=== PATIENT | female | born 1940 | race Caucasian/White ===

== ENCOUNTER 2019-09-25 13:30 | Outpatient (RCR) | payer MEDICARE, SELFPAY ==
--- NOTE | 2019-07-14 13:40 | OTOPEVAL ---
OCCUPATIONAL THERAPY INITIAL EVALUATION 07/14/2019 Thank you for referring this patient to [facility]. Lorena will benefit from skilled OT 2x/week for 4 weeks. Please review, sign, date and return this plan of care KENDALL. I agree with and certify that the following plan of care is medically necessary. Referring Physician Date Attending Provider: Adin Grimaldo MD *OT Outpatient Evaluation Start: 07/14/19 12:35 Freq: Status: Active Protocol: Document 07/14/19 12:35 SABRINA (Rec: 07/14/19 12:56 [email or web address] [email or web address]) Therapy Assessment Status Assessment Status Assessment Status Evaluation Outpatient Past Medical History Neurological History Hx Neurological Disorders No Significant History Cardiovascular History Hx Atrial Fibrillation Yes Hx Chest Pain Yes: occasionaly, happened a few months ago Hx Hypertension Yes Respiratory History Hx Sleep Apnea Yes: Did not qualify for a machine Gastrointestinal History Hx Other Gastrointestinal Disorders Yes: Constipation Genitourinary History Hx Urinary Tract Infection Yes Musculoskeletal History Hx Fibromyalgia Yes Hematological History Hx Hematological Disorders No Significant History Endocrine History Hx Other Endocrine Disorders Yes: X3 sinus surgerys HEENT History Hx Macular Degeneration Yes: Right eye Integumentary History Hx Eczema Yes Reproductive History Hx Reproductive Disorders No Significant History Psychosocial History Hx Anxiety Yes Hx Depression Yes Pain History History of Any Previous or Ongoing No Significant History Instance of Pain Anesthesia History Hx Anesthesia Reactions No Significant History Evaluation Information Problem Diagnosis (L) proximal humerus fracture Onset about a month ago Cause Fall Additional Evaluation Detail Patient sustained a fall and left comminuted proximal humerus fracture, which was treated non operatively. She has been wearing a sling at night for comfort. Prior Level of Function Activity Level (Last 3 Months) Hand Dominance Right Home Setting Home Type House,Single Level Living Situation With Relatives Comments Additional Prior Level of Function Lorena lives with her sister. Comments Prior to her fall and fracture she was independent with ADLs, cooking, cleaning, grocery
[2019-08-11 13:26] VITALS: BP_SYST 130
--- NOTE | 2019-08-11 15:03 | OTOPEVAL ---
OCCUPATIONAL THERAPY RE-EVALUATION REPORT 08/11/19 Thank you for referring this patient to [facility]. Due to transportation issues, Lorena needs to have 2 weeks off of therapy. She plans to continue her ROM HEP and follow up with MD next 08/21/19. Plan to see her 2x/week for 3 weeks after her MD appt. Please review, sign, date and return this re-evaluation KENDALL. I agree with and certify that the following plan of care is medically necessary. Referring Physician Date Admitting Provider: Attending Provider: Adin Grimaldo MD Referring Provider: *OT Outpatient Evaluation Start: 07/14/19 12:35 Freq: Status: Active Protocol: Document 08/11/19 13:26 SABRINA (Rec: 08/11/19 13:59 SABRINA [email or web address]) Evaluation Information Problem Diagnosis (L) proximal humerus fracture Cause Fall Additional Evaluation Detail Lorena has been participating in outpatient OT x4 weeks for left shoulder AROM and PROM. She has been performing dowel exercises, pulleys, and scapular ROM exercises to facilitate optimal functional use of the LUE for ADLs. Subjective Information Lorena reports improved Query Text:As Reported By Patient/ independence and less pain Family with ADLs. She notes that getting dressed and doing a sponge bath has gotten easier. Pain Assessment Timing of Pain Assessment Timing of Pain Assessment Re-assessment Pain Scale Pain Scale Used Numeric (1 - 10) Self Report Pain Assessment Left Shoulder(s) Reported Pain Level 3 Pain Description Aching,Dull Current Pain Intensity 3 Lowest Pain Intensity 3 Greatest Pain Intensity 5 Pain Aggravating Factors Exercise/Activity Pain Relief Interventions Used By Heat,Inactivity/Rest Patient Pain Score Pain Score 3: Self Report Additional Pain Score Comments Pain reduced from 8/10 with ROM HEP to 4/10. Upper Extremity Range of Motion Scapular/ Shoulder Range of Motion Left Shoulder Flexion - Active 100 Shoulder Flexion - Passive 140 Shoulder Extension - Active 55 Shoulder Abduction - Active 90 Shoulder Abduction - Passive 130 Shoulder Medial Rotation - Active IR of BUEs is symmetrical. Query Text:Reach Behind the Back Shoulder Lateral Rotation - Active ER of BUEs is symmetrical Query Text:Reach Behind the Head Scapular/Shoulder Range of Motion (L) shoulder AROM improved Comments from: 75* flexion
--- NOTE | 2019-08-26 07:37 | PCOTNOTE ---
Due to COVID-19, Lorena's follow up appt with Dr. Grimaldo was cancelled. Called his office today to ask about progressing Lorena's exercises to strengthening. Spoke with Ashlyn at his office. She states that she talked with Dr. Grimaldo and Lorena is able to begin strengthening as tolerated.
[2019-09-11 13:34] VITALS: BP_SYST 130
--- NOTE | 2019-09-11 14:31 | OTOPEVAL ---
OCCUPATIONAL THERAPY RE-EVALUATION REPORT 09/11/2019 Lorena is making progress with ROM and functional strength. She will benefit from continue skilled OT 2x/week for 4 weeks. Thank you for referring Lorena Gurrola to [facility]. Please review, sign, date and return this plan of care [facility]. I agree with and certify that the following plan of care is medically necessary. Referring Physician Date Admitting Provider: Attending Provider: Adin Grimaldo MD Referring Provider: *OT Outpatient Evaluation Evaluation Information Problem Diagnosis (L) proximal humerus fracture Cause Fall Additional Evaluation Detail Lorena has been participating in outpatient OT x8 weeks for left shoulder AROM/PROM and some gentle strengthening. Subjective Information Lorena she has difficulty Query Text:As Reported By Patient/ getting into a comfortable Family position when going to sleep at night. When asked about functional improvements she states Hard to say, I don't do much. Pain Assessment Timing of Pain Assessment Timing of Pain Assessment Re-assessment Pain Scale Pain Scale Used Numeric (1 - 10) Self Report Pain Assessment Left Shoulder(s) Reported Pain Level 2 Pain Description Aching,Soreness Lowest Pain Intensity 1 Greatest Pain Intensity 5 Pain Score Pain Score 2: Self Report Upper Extremity Range of Motion Scapular/ Shoulder Range of Motion Left Shoulder Flexion - Active 115 Shoulder Extension - Active 70 Shoulder Abduction - Active 105 Shoulder Abduction - Passive 130 Shoulder Medial Rotation - Active (L) hand reaches 4 inches Query Text:Reach Behind the Back lower than the (R) hand when reaching up the back. Shoulder Lateral Rotation - Active (L) hand reaches 1 inch less Query Text:Reach Behind the Head than the (R) hand when reaching behind the head. Scapular/Shoulder Range of Motion (L) shoulder AROM improved Comments from, measured on 08/11/19: 100* flexion 55* extension 90* abduction PROM of flexion and abduction remained at 140* and 130* respectively. Elbow/Forearm Range of Motion Left Reason Not Measured WNL/Left Wrist Range of Motion Left Reason Not Measured WNL/Left Finger Range of Motion Left Reason Not Measured WNL/Left Thumb Range of Motion Left Reason Not Measured WNL/Left
--- NOTE | 2019-09-29 08:48 | PCOTNOTE ---
Patient called & cancelled scheduled appointment this date. Unknown reason.
--- NOTE | 2019-10-06 08:54 | PCOTNOTE ---
Addendum entered by Pete Katz, KATELYN/Sandra, CHT 10/06/19 08:54: Last 's 10/02/19, not 10/09/19 Original Note: Patient cancelled last 's (10/09/19) and today's appt due to leg pain.
--- NOTE | 2019-10-09 16:09 | PCOTNOTE ---
This treatment is being continued on visit number [id number]. Please see documentation on both accounts to view progress. Completed interventions, outcomes, and problems have been marked as Inactive to facilitate the copying of the Care plan routine for recurring accounts.
== END 2019-10-08 14:51 | disposition home or self-care (01) ==
LOC: ANHOT 13:30
PROVIDERS: PCP Family Medicine; Visit Provider Orthopaedic Surgery
DX: S42.302D Unspecified fracture of shaft of humerus, left arm, subsequent encounter for fracture with routine healing (principal); I48.0 Paroxysmal atrial fibrillation
CPT/HCPCS: 97014; 97110; 97140; 97165; 97530; G0283

== ENCOUNTER 2019-11-17 13:30 | Outpatient (RCR) | payer MEDICARE, SELFPAY ==
[2019-10-08 14:52] VITALS: BP_SYST 130
--- NOTE | 2019-10-09 16:10 | PCOTNOTE ---
The treatment documented on this account is a continuation of the treatment documented on visit number [id number]. Please see documentation on both accounts to view progress. The Plan of Care has been transitioned and updated within the new V#. I have addressed and agree with the discipline specific Problems, Interventions, and Goals for the current certification period. Completed interventions, outcomes, and problems have been marked as Inactive to facilitate the copying of the Care plan routine for recurring accounts.
--- NOTE | 2019-10-15 07:45 | PCOTNOTE ---
Patient called and cancelled Sunday's appointment this week (10/13/19) due to still having trouble getting around after falling and hurting her ankle. She also expresses concern about making it to Sunday's appointment (10/17/19), which is her re-evaluation. She has not been seen for 3 weeks (since 09/25/19). When talking to her Sunday, I recommended that she make a follow up appointment with Dr. Grimaldo.
[2019-10-17 14:41] VITALS: BP_SYST 140
--- NOTE | 2019-10-17 15:44 | OTOPEVAL ---
OCCUPATIONAL THERAPY RE-EVALUATION AND PROGRESS REPORT 10/17/2019 Lorena has missed 3 weeks of therapy due to an ankle injury and progress this assessment period is minimal. She also reports difficulty understanding and completing her home exercise program, thus continued skilled therapy is recommended for hands on instruction and progression. Plan to see patient 2x/week for 4 additional weeks. Thank you for referring Lorena Gurrola to [facility]. Please review, sign, date and return this plan of care KENDALL. I agree with and certify that the following plan of care is medically necessary. Referring Physician Date Referring Provider: Adin Grimaldo MD *OT Outpatient Re-Evaluation Evaluation Information Problem Diagnosis (L) proximal humerus fracture Cause Fall Additional Evaluation Detail Lorena has not been seen in therapy since 09/25/19 due to falling and injuring her ankle. She was only seen 4 times since her last re-evaluation on 09/11/19 and then had a 3 week gap of no therapy. Due to nature of her shoulder fracture and patient's level of difficulty understanding her exercises, the progress has been slow and guarded. Subjective Information Lorena reports feeling like her Query Text:As Reported By Patient/ shoulder hasn't made any Family progress. She states she does her exercises everyday. Pain Assessment Timing of Pain Assessment Timing of Pain Assessment Re-assessment Pain Scale Pain Scale Used Numeric (1 - 10) Self Report Pain Assessment Left Shoulder(s) Reported Pain Level 2 Pain Description Aching,Dull Lowest Pain Intensity 1 Greatest Pain Intensity 5 Pain Aggravating Factors ADL's,Exercise/Activity Pain Score Pain Score 2: Self Report Upper Extremity Range of Motion Scapular/ Shoulder Range of Motion Left Shoulder Flexion - Active 120 Shoulder Flexion - Passive 140 Shoulder Extension - Active 70 Shoulder Abduction - Active 110 Shoulder Abduction - Passive 140 Shoulder Medial Rotation - Active ER of the (L) shoulder is 1 cm Query Text:Reach Behind the Back less than the (R) shoulder. This improved from 4 inch difference. Shoulder Lateral Rotation - Active IR is symmetrical to the RUE. Query Text:Reach Behind the Head This improved from 1 inch difference. Scapular/Shoulder Range of Motion ROM measurements from 09/11/19: Comments -flexion 115*
[2019-11-17 13:39] VITALS: BP_SYST 115
--- NOTE | 2019-11-17 14:18 | OTOPEVAL ---
OCCUPATIONAL THERAPY DISCHARGE NOTE 11/17/2019 Thank you for referring Lorena Gurrola to [facility]. Patient has reached a plateau with ROM. She is currently independent with ROM and strengthening HEP. D/C skilled OT at this time. Please review, sign, date and return this D/C Note KENDALL. I agree with and certify that the following plan of care is medically necessary. Referring Physician Date Referring Provider: Adin Grimaldo MD *OT Outpatient Re-Evaluation & D/C Evaluation Information Problem Diagnosis (L) proximal humerus fracture Onset May 2019 Cause Fall Subjective Information Lorena reports improved Query Text:As Reported By Patient/ functional use of the LUE to Family take the trash out, doing the dishes, cooking, and washing her hair. She reports not being able to sleep on the left side and lift heavy with the left arm. Pain Assessment Timing of Pain Assessment Timing of Pain Assessment Re-assessment Pain Scale Pain Scale Used Numeric (1 - 10) Self Report Pain Assessment Left Shoulder(s) Reported Pain Level 2 Pain Description Aching,Dull Lowest Pain Intensity 2 Greatest Pain Intensity 5 Pain Aggravating Factors Exercise/Activity Pain Score Pain Score 2: Self Report Upper Extremity Range of Motion Scapular/ Shoulder Range of Motion Left Shoulder Flexion - Active 120 Shoulder Flexion - Passive 140 Shoulder Extension - Active 70 Shoulder Abduction - Active 110 Shoulder Abduction - Passive 115 Shoulder Medial Rotation - Active ER of the (L) shoulder is Query Text:Reach Behind the Back symmetrical to the (R) shoulder when patient reaches her hands up her back. Shoulder Lateral Rotation - Active IR is symmetrical to the RUE Query Text:Reach Behind the Head when patient reaches her hands behind her head and neck. Scapular/Shoulder Range of Motion ROM measurements from 10/17/19: Comments -flexion 120* -extension 70* -abduction 110* No changes in AROM since last reassessment. Patient appears to be reaching a plateau with functional AROM. She is currently independent with all ROM and strengthening exercises. Upper Extremity Muscle Strength Testing Scapular/Shoulder Left Shoulder Flexion Strength 4 Good Shoulder Extension Strength
== END 2019-11-18 10:22 | disposition home or self-care (01) ==
LOC: ANHOT 13:30
PROVIDERS: PCP Family Medicine; Visit Provider Orthopaedic Surgery
DX: S42.302D Unspecified fracture of shaft of humerus, left arm, subsequent encounter for fracture with routine healing (principal); I48.0 Paroxysmal atrial fibrillation
CPT/HCPCS: 97110; 97140

== ENCOUNTER 2020-06-20 14:34 | Emergency (ER) | payer MEDICARE, SELFPAY ==
--- NOTE | ~2020-06-20 | XR_ITS ---
EXAMINATION: XR ribs RT 2V EXAM DATE: 06/20/2020 15:20 INDICATION: Fall, pain under right breast. TECHNIQUE: Frontal projection of the upper right ribs, frontal projection of the lower right ribs, ob lique projection of the right ribs, without chest x-ray(s) for interpretation. There is no prior saturnino dy for comparison. FINDINGS: Bones are osteopenic. Please note that osteopenia limits sensitivity for detecting fractur es by radiographs. There are coarse alterations of right 8th-10th ribs anterolaterally without discr ete fracture line identified. There is no soft tissue abnormality seen. No right-sided pneumothora x. IMPRESSION: Several right lower rib course alterations anterolaterally, could be chronic given no dis crete fracture line identified but can't exclude acute rib fracture. Reviewed, dictated and finalized at location A. RNAL SPECIALIST IMPRESSION: Several right lower rib course alterations anterolaterally, could b e chronic given no discrete fracture line identified but can't exclude acute ri b fracture.
--- NOTE | ~2020-06-20 | XR_ITS ---
EXAMINATION: XR sacrum coccyx min 2V EXAM DATE: 06/20/2020 15:20 INDICATION: Fall, tailbone pain. Initial encounter. TECHNIQUE: Frontal projection, inlet projection, lateral projection sacrum and coccyx. There is no prior study for comparison. FINDINGS: Evaluation limited from bowel gas and osteopenia. Sacrum, sacroiliac joints, sacral arcuate lines are intact, no definite acute fracture. Lower lumbar spondylosis. IMPRESSION: Limited exam without acute fracture line identified. Reviewed, dictated and finalized at location A. P CARE WORKER
--- NOTE | 2020-06-20 14:50 | ED.FALL ---
HPI - Fall General Chief Complaint: Back Pain/Injury Stated Complaint: Back Pain Time Seen by Provider: 06/20/20 15:21 Source: patient and RN notes reviewed Mode of arrival: ambulatory Limitations: no limitations History of Present Illness HPI Narrative: 79-year-old female presents concern for right rib pain, tailbone pain after falling in the bathroom on . She denies any head injury, loss of consciousness, weakness in any extremity, headache. Reports right rib pain with certain movements and deep breathing. Denies any bruising, open skin, abrasions, lacerations. Reports she has been taking Tylenol for pain. MD complaint: fall Related Data Home Medications Medication Instructions Recorded Confirmed rivaroxaban 20 mg tablet 20 mg PO DAILY 04/02/19 06/20/20 thyroid (pork) [[facility] Thyroid] 30 mg PO DAILY 06/20/20 06/20/20 Allergies Allergy/AdvReac Type Severity Reaction Status Date / Time No Known Allergies Allergy Verified 05/26/20 13:41 Review of Systems Review of Systems: Narrative: CONSTITUTIONAL: Denies malaise, chills, sweats, or fever. CARDIOVASCULAR: Denies chest pain, palpitations, or edema. RESPIRATORY: Denies cough or dyspnea. GASTROINTESTINAL: Denies abdominal pain, nausea, vomiting, diarrhea SKIN: Denies open skin MUSCULOSKELETAL: Reports right rib pain, right tailbone pain NEUROLOGIC: Denies numbness, weakness, or headache. All systems reviewed & are unremarkable except as noted in HPI and below PMFSH Past Medical History Medical History (Updated 06/20/20 @ 15:46 by Natalia Marcelino NP) A-fib Anxiety Chronic constipation Depression History of hepatitis C Hypothyroid Peripheral neuropathy Surgical History Surgical History Surgical history unknown Family History Family History Father Family history of cardiovascular disease Mother Cerebrovascular accident Social History Social History Smoking status: Never smoker Second hand tobacco smoke exposure: No Alcohol intake: current Drinks per week: 2 Substance use: never Substance use type: does not use Gender identity (if verbalized by the patient): Female Spiritual care concerns: Yes Agree to blood products: Yes Comments At time of signature, agree with nursing past medical, surgical, social and family history. There is no relevant family history pertinent to the presenting complaint Exam Narrative: Exam Narrative: GENERAL: Well-appearing, well-nourished, and in no acute distress. HEAD: Normocephalic, atraumatic. EYES: PERRLA, conjunctivae clear, and EOMI. ENT: Nares clear. Mucous membranes moist. NECK: Supple. CHEST: No respiratory distress. Clear to auscultation. No bony deformities, no asymmetry. Speaks in full sentences. No bruising, erythema, open skin noted to chest wall HEART: Regular rate and rhythm. No murmur heard. Normal peripheral pulses. ABDOMEN: Soft, nontender, nondistended, normal active bowel sounds, no palpable masses. EXTREMITIES: Grossly normal range of motion, grossly normal strength and sensation. SKIN: Warm, dry, no rash. NEURO: Alert and oriented x3. No focal deficits. Cranial nerves II through XII grossly intact PSYCH: Normal mood and affect Course Course Emergency Course: Extensive discussion with patient regarding patient's concerns of living alone, taking care of her older sister, concerns about pain control. Patient instructed to call her primary care doctor tomorrow for resources regarding possible help at home, help with groceries. Patient given reasons to go the emergency room. Patient is aware of diagnosis, understands and agrees to treatment plan. Anticipatory guidance given. Patient agrees to follow-up as directed and is aware of reasons to seek care at the emergency department. Portions of this record may have been
[2020-06-20 14:57] VITALS: BP 150/94; PULSE 110; RESP 20; TEMP 36.9; O2SAT 98
== END 2020-06-20 16:09 | disposition home or self-care (01) ==
PROVIDERS: Emergency Provider Nurse Practitioner; PCP Family Medicine
DX: S29.9XXA Unspecified injury of thorax, initial encounter (principal); W19.XXXA Unspecified fall, initial encounter; M53.3 Sacrococcygeal disorders, not elsewhere classified; I48.91 Unspecified atrial fibrillation; Z86.19 Personal history of other infectious and parasitic diseases; E03.9 Hypothyroidism, unspecified; G62.9 Polyneuropathy, unspecified
CPT/HCPCS: 71100; 72220; 99214; G0463

== ENCOUNTER 2020-06-30 09:31 | Outpatient (CLI) | payer MEDICARE, SELFPAY ==
--- NOTE | ~2020-06-30 | XR_ITS ---
EXAMINATION: XR hip RT min 2V DATE: 06/30/2020 10:32 INDICATION: Right hip pain. TECHNIQUE: 2 views of right hip were obtained. COMPARISON: None. FINDINGS: Bone alignment is normal. No fracture. There is mild right hip osteoarthritis. IMPRESSION: 1. Mild right hip osteoarthritis. Reviewed, dictated and finalized at location A. ESS WORKER
== END 2020-06-30 09:32 | disposition home or self-care (01) ==
LOC: ANHIMG 09:36
PROVIDERS: PCP Family Medicine; Visit Provider Family Medicine
DX: M16.11 Unilateral primary osteoarthritis, right hip (principal)
CPT/HCPCS: 73502

== ENCOUNTER 2020-10-01 13:00 | Emergency (ER) | payer MEDICARE, SELFPAY ==
--- NOTE | ~2020-10-01 | XR_ITS ---
EXAMINATION: [id number] INDICATION: Left-sided chest pain TECHNIQUE: A frontal view of the chest and 3 views of the left ribs were obtained. COMPARISON: None. FINDINGS: The lungs are hyperinflated but free of acute opacities. There is no pleural effusion or pn eumothorax. The cardiomediastinal silhouette is normal. There are nondisplaced fractures of the left fourth and seventh ribs. IMPRESSION: 1. Nondisplaced left fourth and seventh rib fractures. 2. Hyperinflation without acute cardiopulmonary abnormality. Reviewed, dictated and finalized at location A.
[2020-10-01 13:10] VITALS: BP 124/88; PULSE 90; RESP 18; TEMP 37.2; O2SAT 97
--- NOTE | 2020-10-01 13:21 | ED.BACK ---
HPI - Back Pain/Injury General Chief Complaint: Unspecified Stated Complaint: Left side Pain Time Seen by Provider: 10/01/20 13:21 Source: patient Mode of arrival: ambulatory Limitations: no limitations History of Present Illness HPI Narrative: Lorena Gurrola is an 80 yo female with a PMH of afib, macular degeneration, hypothyroid, neuropathy, who comes to express care for assessment of L sided chest/ flank pain after bending to side and back while in a chair over a week ago. States pain has not improved, hard to get up from bed, is reproducible chest wall pain. States pain is been unresponsive to tramadol Related Data Home Medications Medication Instructions Recorded Confirmed rivaroxaban 20 mg tablet 20 mg PO DAILY 04/02/19 06/30/20 Injection For Mac. Degeneration 10/01/20 Allergies Allergy/AdvReac Type Severity Reaction Status Date / Time No Known Allergies Allergy Verified 06/30/20 08:48 Review of Systems Review of Systems: Narrative: CONSTITUTIONAL: Denies fever, chills, sweats. EYES: Denies visual changes, redness, discharge. ENT: Denies rhinorrhea, congestion, sore throat, otalgia. CARDIOVASCULAR: Denies chest pain, palpitations, edema. Left sided chest wall pain RESPIRATORY: Denies dyspnea, wheezing, cough GASTROINTESTINAL: Denies abdominal pain, nausea, vomiting, diarrhea. GENITOURINARY: Denies dysuria, hematuria, abnormal discharge SKIN: Denies rash or itching. NEUROLOGIC: Denies numbness, or focal weakness. PSYCHIATRIC: Denies anxiety or depression. PMFSH Past Medical History Medical History A-fib Anxiety Chronic constipation Depression History of hepatitis C Hypothyroid Peripheral neuropathy Surgical History Surgical History Surgical history unknown Family History Family History Father Family history of cardiovascular disease Mother Cerebrovascular accident Social History Social History Smoking status: Never smoker Second hand tobacco smoke exposure: No Alcohol intake: current Drinks per week: 2 Substance use: never Substance use type: does not use Gender identity (if verbalized by the patient): Female Spiritual care concerns: Yes Agree to blood products: Yes Comments At time of signature, I agree with nursing past medical, surgical, social and family history. There is no relevant family history pertinent to the presenting complaint. Exam Narrative: Exam Narrative: GENERAL: This is a well-nourished, well-developed patient, in mild distress. HEAD: normocephalic, atraumatic. EYES: Sclera clear/white. Vision is grossly intact. EARS: External ears normal, unenthusiastic at the CSF about this earlier. Hearing grossly intact. NOSE: External nose normal without nasal discharge, nares without redness, no rhinorrhea. THROAT: Mucous membranes moist, NECK: Neck supple, non-tender CARDIOVASCULAR: Regular rate and rhythm without murmurs, gallops, or rubs. RESPIRATORY: Clear to auscultation. Breath sounds equal bilaterally. No wheezes, rales, or rhonchi. Reproducible pain between ribs 4-5 on the left flank side, pain with stretching in same area GASTROINTESTINAL: Abdomen soft, non-tender, SKIN: warm, intact with no suspicious lesions or rash, good texture and turgor. NEURO: awake, alert, and oriented to person, place and time. There were no obvious focal neurologic abnormalities. Steady gait EXTREMITIES: Normal range of motion. BACK: Nontender without deformity Course Course Emergency Course: 80-year-old woman comes to [facility] for evaluation of left-sided rib pain that started by stretching over a week ago Chest x-ray done with rib view-nondisplaced left fourth and seventh rib fractures with hyperinflation without acute cardio or pulmonary abnor
--- NOTE | 2020-10-01 14:40 | PC.NURSE ---
was discharged after incentive spirometer teaching at 1420, requested to stay in room to call pharmacy before leaving, 1438 still in room and requested to speak with provider.
== END 2020-10-01 14:20 | disposition home or self-care (01) ==
PROVIDERS: Emergency Provider Nurse Practitioner; PCP Family Medicine
DX: S22.42XA Multiple fractures of ribs, left side, initial encounter for closed fracture (principal); X50.9XXA Other and unspecified overexertion or strenuous movements or postures, initial encounter; I48.91 Unspecified atrial fibrillation; E03.9 Hypothyroidism, unspecified; Z86.19 Personal history of other infectious and parasitic diseases; G62.9 Polyneuropathy, unspecified; H35.30 Unspecified macular degeneration
CPT/HCPCS: 71101; 99213; G0463

== ENCOUNTER → 2021-01-06 12:35 | Outpatient (CLI) | payer MEDICARE, SELFPAY ==
--- NOTE | ~2021-01-06 | MR_ITS ---
EXAMINATION: MR cervical spine wo con DATE: 01/06/2021 13:25 INDICATION: Disease of spinal cord, unspecified. Neck pain. TECHNIQUE: Magnetic resonance imaging (MRI) of the cervical spine was performed without intravenous c ontrast. Sequences included sagittal T2-weighted FSE, sagittal STIR FSE, sagittal T1-weighted FSE, ax ial MERGE, and axial T2-weighted FSE. COMPARISON: None FINDINGS: Bone alignment is normal. There is mild chronic anterior wedging of T1 and T3 vertebral bod ies. There is severely decreased disc height from C3-C4 through C6-C7 with endplate remodeling. The s fabi cord signal intensity is normal. The following disc levels are specifically discussed: C2-C3: There is a central protrusion. There is no uncovertebral joint osteoarthritis. There is severe bilateral facet joint osteoarthritis. There is no neural foraminal stenosis. There is no central can al stenosis. C3-C4: The disc does not extend beyond the endplate margin. There is ankylosis of the uncovertebral j oints without hypertrophy. There is ankylosis of the facet joints with mild right and severe left hyp ertrophy. There is mild right and moderate left neural foraminal stenosis. There is no central canal stenosis. C4-C5: The disc is bulging. There is severe bilateral uncovertebral joint osteoarthritis. There is se devang bilateral facet joint osteoarthritis. There is moderate bilateral neural foraminal stenosis. The re is mild central canal stenosis with ventral indentation of the spinal cord. C5-C6: The disc is bulging. There is severe bilateral uncovertebral joint osteoarthritis. There is se devang bilateral facet joint osteoarthritis. There is moderate bilateral neural foraminal stenosis. The re is mild central canal stenosis. C6-C7: The disc is bulging. There is severe bilateral uncovertebral joint osteoarthritis. There is se devang bilateral facet joint osteoarthritis. There is mild bilateral neural foraminal stenosis. There i s mild central canal stenosis. C7-T1: The disc does not extend beyond the endplate margin. There is no uncovertebral joint osteoarth ritis. There is ankylosis of the facet joints with mild hypertrophy. There is mild left neural forami nal stenosis. There is no central canal stenosis. IMPRESSION: 1. Severe cervical spondylosis. Reviewed, dictated and finalized at location A.
== END ==
PROVIDERS: PCP Family Medicine; Visit Provider Psychiatry & Neurology Neurology
DX: G95.9 Disease of spinal cord, unspecified (principal); M47.892 Other spondylosis, cervical region
CPT/HCPCS: 72141

== ENCOUNTER 2021-02-06 10:15 | Observation (INO) | payer MEDICARE, SELFPAY ==
--- NOTE | ~2021-02-06 | XR_ITS ---
EXAMINATION: XR ankle RT min 3V EXAM DATE: 02/06/2021 11:54 INDICATION: Initial encounter following injury, with pain of the right ankle. TECHNIQUE: Right ankle frontal, lateral and oblique projections obtained and reviewed. There is no p rior study for comparison. FINDINGS: Mid aspect of the right fibula has somewhat unusual appearance to the cortex, could be proj ectional but can't exclude mid fibular fracture; recommend right tibia/fibula exam. The right ankle m ortise appears intact. There is no subcutaneous gas. The soft tissue is unremarkable. There are n o radiopaque foreign bodies. IMPRESSION: Recommend tibia/fibula x-ray . No ankle fracture. Reviewed, dictated and finalized at location A.
--- NOTE | ~2021-02-06 | CT_ITS ---
EXAMINATION: CT lumbar spine wo [facility] EXAM DATE: 02/06/2021 12:54 INDICATION: Back pain. Compression fractures. TECHNIQUE: Spiral CT lumbar spine was performed without contrast. Axial, coronal and sagittal images of the lumbar spine were reviewed. The dose-length product (DLP) for this examination was 815.82 mGy- cm. The exposure was tailored according to patient size (auto mA exposure control), and iterative re construction (ASIR) was used as additional dose reduction technique. Correlation is made to lumbar x- ray same date. FINDINGS: There are mild compression fractures at the superior endplates of L1 and L3, mild to moderate diffuse loss of the L4 vertebral body height, technically a burst fracture. The L1 compression fracture appe ars acute or at least has an acute component, with mild fat stranding surrounding this vertebral body . The others appear chronic. There is 6 mm anterolisthesis L4 on L5 without spondylolysis. Moderate t o severe L3-4 disc disease, mild to moderate at L2-3. Mild lumbar levoscoliosis. Sacroiliac joints ar e intact. Some advanced lower lumbar facet arthropathy. The right L3-4 neural foramina has moderate t o severe stenosis, the most narrowed level. Large fluid density lesion in the liver incompletely imaged, imaged portion consistent with cyst. The re is low density left adrenal gland nodule measuring 2.2 cm consistent with adenoma. IMPRESSION: 1. L1 mild compression fracture, acute or with acute component/refracture. 2. Chronic L3 compression and L4 burst fractures. 3. Left adrenal adenoma. Reviewed, dictated and finalized at location A.
--- NOTE | ~2021-02-06 | XR_ITS ---
EXAMINATION: XR lumbar spine min 4V EXAM DATE: 02/06/2021 11:54 INDICATION: Fall. Back pain. Spinal stenosis. TECHNIQUE: Lumber spine frontal, lateral, bilateral oblique projections. Coned down frontal and lat eral L5-S1 lumbar projections for interpretation. There is no prior study for comparison. FINDINGS: Bones are osteopenic. There is mild compression fracture superior endplate of L1 and superi or endplate of L3, mild to moderate diffuse compression fracture of L4. These appear chronic but can' t exclude acute component. There is moderate mid and lower lumbar facet arthropathy. There is grade 1 anterolisthesis L4 on L5 without spondylolysis suspected. There is moderate to severe loss of the di sc height at L3-4, mild to moderate at L2-3. Sacrum, sacroiliac joints, sacral arcuate lines are inta ct. IMPRESSION: 1. L1, L3 and L4 compression fractures appear chronic but can't exclude acute component. 2. Lumbar spondylosis. Reviewed, dictated and finalized at location A.
--- NOTE | ~2021-02-06 | XR_ITS ---
EXAMINATION: XR tibia fibula RT 2V EXAM DATE: 02/06/2021 12:47 INDICATION: Abnormal ankle x-ray. TECHNIQUE: Right tibia/fibula frontal and lateral projections obtained and reviewed. Correlation is m alexander to right ankle exam same date. FINDINGS: Right tibial and fibular shafts unremarkable, ankle finding is normal contour to the fibul a. There are no acute fractures or dislocations identified. There is no subcutaneous gas. The soft tissue is unremarkable. There are no radiopaque foreign bodies. IMPRESSION: 1. Right tib-fib exam without acute osseous findings. Reviewed, dictated and finalized at location A.
[2021-02-06 10:15] VITALS: BP 112/77; PULSE 90; RESP 16; TEMP 36.3; O2SAT 96
[2021-02-06] MEDS: HYDROcodone/acetaminophen (*CRX) 5-325 MG TABLET 1 TAB PO ×3 (11:40→16:34)
--- NOTE | 2021-02-06 12:05 | ED.GENADULT ---
HPI - General Adult General Chief complaint: Back Pain/Injury Stated complaint: FALL/ LOW BACK PAIN Time Seen by Provider: 02/06/21 10:37 Source: patient and family Mode of arrival: EMS Limitations: no limitations History of Present Illness HPI narrative: Patient with history of spinal stenosis presents with chief complaint of increased low back pain and pain to her right ankle that began 2 days ago after a fall. Patient states she also attempted to help her sister up and that also triggered her back pain. Patient has not been able to ambulate around her home due to her discomfort. Patient was prescribed hydrocodone 10 mg but states that she took the tablets and feels very dizzy and unable to ambulate so she has not taking any more medication. Patient states that her baclofen was also increased from 5 to 10 mg. Patient states that she has taken baclofen for many years. Patient's family states that the patient needs to be admitted because she cannot take care of herself at home and the family cannot watch her. Patient denies. Injury, syncope, chest pain, shortness of breath, loss of bowel or bladder function or saddle paresthesias. Patient does not have any neurologic deficits. Patient states she was able to get up within a few minutes after her fall. Related Data Home Medications Medication Instructions Recorded Confirmed baclofen 20 mg PO DAILY 02/06/21 02/06/21 diltiazem HCl [DILT-XR] 180 mg PO DAILY 02/06/21 02/06/21 hydrocodone-acetaminophen 1 tablet PO Q8H PRN 02/06/21 02/06/21 mirtazapine 15 mg PO HS 02/06/21 02/06/21 rivaroxaban [Xarelto] 20 mg PO DAILY 02/06/21 02/06/21 thyroid (pork) [[place] Thyroid] 30 mg PO DAILY 02/06/21 02/06/21 Allergies Allergy/AdvReac Type Severity Reaction Status Date / Time No Known Allergies Allergy Verified 02/06/21 16:27 Review of Systems Review of Systems: CONSTITUTIONAL: Denies fever, chills, or sweats. EYES: Denies visual changes, redness, or discharge. ENT: Denies rhinorrhea, congestion, sore throat, or otalgia. CARDIOVASCULAR: Denies chest pain, palpitations, or edema. RESPIRATORY: Denies cough or dyspnea. GASTROINTESTINAL: Denies abdominal pain, nausea, vomiting, or diarrhea. GENITOURINARY: Denies dysuria or hematuria. SKIN: Denies rash or itching. MUSCULOSKELETAL: Reports back pain and ankle denies joint pain or myalgia. NEUROLOGIC: Denies headache, numbness, dizziness, or weakness. PSYCHIATRIC: Denies anxiety or depression. [facility] Past Medical History Medical History (Updated 02/06/21 @ 19:19 by Laney Edmonds NP) A-fib Anxiety Chronic constipation Depression History of hepatitis C Treated Hypothyroid Peripheral neuropathy Surgical History Surgical History (Updated 02/06/21 @ 19:21 by Laney Edmonds NP) H/O sinus surgery X3 History of tonsillectomy and adenoidectomy Family History Family History Father Family history of cardiovascular disease Mother Cerebrovascular accident Social History Social History (Updated 02/06/21 @ 19:23 by Laney Edmonds NP) Social History: The patient has never been or had any children. She lives with her 88-year-old sister. 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 The patient desires to be a full code and her friend Nicky is a durable power commonwealth attorney for healthcare. The patient is a lifelong nonsmoker. She does not use alcohol marijuana or illicit drugs. Smoking status: Never smoker Second hand tobacco smoke exposure: No Alcohol intake: former Drinks per week: 2 Substance use: never Substance use type: does not use Gender identity (if verbalized by the patient): Female Sexual Orientation (if Verbalized by the Patient): Straight or Heterosexual Spiritual care concerns: Yes Agree to blood products: Yes Exam Narrative: GENERAL: Well-appearing, well-nourished, and in no acute distress. HEAD: Normocephalic, atraumati
[2021-02-06] MEDS: diazePAM (*CRX) 5 MG TABLET 2.5 MG PO (12:34)
[2021-02-06 15:55] VITALS: BP 117/86; PULSE 76; RESP 16; O2SAT 96
--- NOTE | 2021-02-06 16:26 | ADMGEN ---
This patient, Lorena Gurrola, was admitted to 3 [facility] Surg Room 332-01. Patient/family oriented to hospital policies and general routines including ID bracelet, bed and alarms, visiting hours, pain management, procedures, bathroom and other care routines, personal items, smoking policy, room service/diet, and visiting hours. Information on how to activate the Rapid Response Team has been discussed. Patient/Family are encouraged to report perceived risks to care and to ask questions if they do not understand what they are told or what they should do.
[2021-02-06 16:54] VITALS: BMI 26.4
--- NOTE | 2021-02-06 19:15 | PM.IMHP ---
H&P: HPI History of Present Illness Date/Time: 02/06/21 19:15 this is a 80-year-old female patient who lives with her older sister that she takes care of who is 88 years old. The patient states that she does have some chronic back pain but recently she help to get her sister up and hurt her back. The patient has a history of spinal stenosis and came to the emergency room today with increased lower back pain and also right ankle pain. She said that she fell 2 days ago as well. The patient stated that she is having difficulty ambulating due to the pain. She states that she can move everything and she is difficult for her to walk due to the pain. She typically walks with a walker. The patient states that her baclofen was increased to 5-10 mg. She has been taking some Vicodin that she was prescribed but is making her feel dizzy. The patient stated that she cannot take care of herself and that the family cannot take it for either. The patient is not incontinent of bowel or bladder. Lumbar spine CT was read as L1 mild compression fracture, acute or with acute component/re fracture. Chronic L3 compression at L4 burst fractures. Left adrenal adenoma. Tibia-fibula x-ray was read as right tib-fib exam without acute osseous findings. The patient was given Vicodin and Valium. The patient stated that her pain is still be on a 10. The patient is being admitted to observation status on the date of service of 02/06/2021. Chief Complaint: Back pain Review of Systems Review of Systems: All systems reviewed & are unremarkable except as noted in HPI and below Constitutional: Constitutional: Reports as per HPI and Reports no additional constitutional complaints Eyes: Eyes: Reports as per HPI and Reports no additional eye complaints ENT: Reports system reviewed and no additional complaints, except as documented and Reports Normal hearing present Cardiovascular: Cardiovascular: Reports no additional cardiovascular complaints Respiratory: Respiratory: Reports no additional respiratory complaints and Reports no additional respiratory complaints Gastrointestinal: Gastrointestinal: Reports as per HPI and Reports no additional gastrointestinal complaints Musculoskeletal: Musculoskeletal: Reports no additional musculoskeletal complaints Integumentary/Breasts: Skin/Breast: Reports system reviewed and no additional complaints, except as docu and Reports as per HPI Neurologic: Reports system reviewed and no additional complaints, except as documented, Reports as per HPI and Reports Normal hearing present Psychiatric: Psychiatric: Reports no additional psychiatric complaints and Reports as per HPI Endocrine: Endocrine: Reports no additional endocrine complaints Hematologic/Lymphatic: Hematologic/Lymphatic: Reports no additional hematologic/lymphatic complaints Allergic/Immunologic: Allergic/Immunologic: Reports no additional allergic/immunologic complaints [facility] Past Medical History Medical History (Updated 02/06/21 @ 19:19 by Laney Edmonds NP) A-fib Anxiety Chronic constipation Depression History of hepatitis C Treated Hypothyroid Peripheral neuropathy Surgical History Surgical History (Updated 02/06/21 @ 19:21 by Laney dEmonds NP) H/O sinus surgery X3 History of tonsillectomy and adenoidectomy Family History Family History Father Family history of cardiovascular disease Mother Cerebrovascular accident Social History Social History (Updated 02/06/21 @ 19:23 by Laney Edmonds NP) Social History: The patient has never been or had any children. She lives with her 88-year-old sister. 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 The patient desires to be a full code and her friend Nicky is a durable power trust and estates attorney for healthcare. The patient is a lifelong nonsmoker. She does not use alcohol marijuana or illicit drugs. Smoking status: Never smoker Deny
[2021-02-06] MEDS: MIRTAZAPINE 15 MG TABLET PO (21:19)
[2021-02-06] MEDS: METHYLNALTREXONE 12 MG/0.6 ML VIAL SUB-Q (21:19)
[2021-02-06] MEDS: KETOROLAC 15 MG/ML VIAL (*BKC) IV PUSH (21:19)
[2021-02-06 22:00] VITALS: BP 93/52; PULSE 68; RESP 18; TEMP 36.7; O2SAT 95
[2021-02-07] MEDS: HYDROcodone/acetaminophen (*CRX) 5-325 MG TABLET 1 TAB PO ×3 (03:09→23:59)
[2021-02-07] MEDS: THYROID 30 MG TABLET PO (05:51)
[2021-02-07 06:00] VITALS: BP 105/67; PULSE 74; RESP 18; TEMP 36.2; O2SAT 96
[2021-02-07 06:53] LABS: Lactic Acid Reflex 0.8 mmol/L (0.7-2.1)
[2021-02-07 06:56] LABS: Alanine Aminotransferase 14 U/L (4-35); Albumin Level 3.8 g/dL (3.5-5.1); Alkaline Phosphatase 92 U/L (38-126); Anion Gap 9 mmol/L (8-16); Aspartate Amino Transferase 23 U/L (14-36); Bilirubin,Total 0.6 mg/dL (0.2-1.3); Blood Urea Nitrogen 25 mg/dL (7-17); Carbon Dioxide 26 mmol/L (22-30); Chloride 105 mmol/L (98-107); Estimated CRCL calculation 38 ml/min; Estimated Glomerular Filt Rate 60; Glucose 101 mg/dL (65-110); Magnesium 2.5 mg/dL (1.6-2.3); Potassium 3.3 mmol/L (3.4-5.0); Sodium 140 mmol/L (137-145)
[2021-02-07 06:58] LABS: Basophils Absolute Auto 0.1 K/mm3 (0.0-0.1); Basophils Percent Auto 0.9 % (0.2-1.2); Eosinophils Absolute Auto 0.2 K/mm3 (0-0.3); Eosinophils Percent Auto 3.6 % (0-4.4); Hematocrit 44.3 % (37.0-47.0); Hemoglobin 14.7 g/dL (12.0-15.0); Immature Granulocyte Absolute 0.03 K/mm3 (0.00-0.031); Immature Granulocyte Percent A 0.5 % (0-0.5); Lymphocytes Absolute Auto 2.23 K/mm3 (0.9-3.2); Lymphocytes Percent Auto 40.3 % (18.3-44.2); Mean Corpuscular HGB Conc 33.2 g/dl (32-36); Mean Corpuscular Hemoglobin 30.9 pg (26-34); Mean Corpuscular Volume 93.1 fl (80-100); Mean Platelet Volume 10.5 fl (7.4-10.4); Monocytes Absolute Auto 0.6 K/mm3 (0.1-0.6); Monocytes Percent Auto 10.3 % (2.6-8.5); Neutrophils Absolute Auto 2.5 K/mm3 (1.3-6.7); Neutrophils Percent Auto 44.4 % (45.5-73.1); Platelet Count Result 195 k/mm3 (150-375); Red Blood Count 4.76 M/mm3 (4.2-5.4); Red Cell Distribution Width 13.4 % (11.5-14.5); White Blood Count 5.5 K/mm3 (4.5-10.0)
[2021-02-07] MEDS: dilTIAZem HCL CD 180 MG CAP.ER.24H PO (08:42)
[2021-02-07] MEDS: BACLOFEN 10 MG TABLET 20 MG PO (08:42)
[2021-02-07 09:38] LABS: Free T4 Free Thyroxine Reflex 1.34 ng/dL (0.78-2.19)
[2021-02-07] MEDS: POTASSIUM CHLORIDE 20 MEQ TABLET PO (11:05)
[2021-02-07 14:00] VITALS: BP 122/78; PULSE 78; RESP 18; TEMP 36.6; O2SAT 95
--- NOTE | 2021-02-07 15:15 | PM.IMPN ---
Progress Note: A&P Assessment and Plan (1) Compression fracture of L1 lumbar vertebra: Qualifiers: Encounter type: initial encounter Qualified Code(s): S32.010A - Wedge compression fracture of first lumbar vertebra, initial encounter for closed fracture Code(s): S32.010A - Wedge compression fracture of first lumbar vertebra, initial encounter for closed fracture Status: Acute Assessment and Plan: Secondary to fall. Lumbar spine CT showed L1 mild compression fracture acute or with acute component as well as chronic L3 compression fracture. Supportive care. Ice and heat p.r.n. Appreciate PT/OT eval Continue with baclofen and analgesics as needed for pain SNF placement being arranged. Appreciate care coordination consultation (2) Intractable back pain: Code(s): M54.9 - Dorsalgia, unspecified Status: Acute Assessment and Plan: Improving. Plan as above. (3) Neuropathy: Code(s): G62.9 - Polyneuropathy, unspecified Status: Acute Assessment and Plan: Chronic. Related to spinal stenosis. She has been followed by Dr. Crawford for this. (4) Chronic constipation: Code(s): K59.09 - Other constipation Status: Acute Assessment and Plan: Likely related to opioid use. Last bowel movement 3 days ago. Received 1 dose of Relistor on admission MiraLax and Colace daily Dulcolax suppository prn Limit narcotics and encourage ambulation (5) Chronic atrial fibrillation: Code(s): I48.20 - Chronic atrial fibrillation, unspecified Status: Acute Assessment and Plan: Rate is controlled and she is asymptomatic Continue home Cardizem and Xarelto (6) Acquired hypothyroidism: Code(s): E03.9 - Hypothyroidism, unspecified Status: Acute Assessment and Plan: TSH is slightly elevated with normal T4 and T3 Continue [place] Thyroid 30 mg daily She will benefit from repeat TSH with reflex in 4-6 weeks as an outpatient Subjective Date/time seen: 02/07/21 15:15 Interval history: Date of service: 02/07/2021 Lorena Gurrola is an 80-year-old female with a history atrial fibrillation on chronic anticoagulation, anxiety, hypothyroidism, peripheral neuropathy who is seen in follow-up for low back pain due to compression fracture. She is feeling better today and her pain has improved. She currently rates her pain as 4/10. She reports the pain starts in the upper back and travels down to the sacral region. No lateral radiation towards the hips. No groin pain, no saddle anesthesia, no numbness or tingling of lower extremities. No loss of bowel control. Last bowel movement was approximately 3 days ago. She is incontinent of urine at baseline. She has been able to ambulate with assistance without an increase in her pain. She denies abdominal pain, nausea, vomiting, fever, chills, shortness breath, cough, chest pain, dizziness, lightheadedness. She is feeling a bit anxious today. Her appetite has been good. She has no additional concerns. Review of Systems Review of Systems: All systems reviewed & are unremarkable except as noted in HPI and below Exam Narrative: Ms. Gurrola is a well-nourished, well-appearing 80-year-old female who is lying supine in bed. She appears comfortable and is in NARD. Neuro: awake, alert and oriented x4, speech clear, no focal neuro deficits noted HEENMT: normocephalic, atraumatic, EOMI, sclerae anicteric, moist oral mucosa, tongue midline, nares patent Neck/back: Neck supple without lymphadenopathy, no point tenderness on back, no paraspinal muscle numbness Respiratory: clear to auscultation bilaterally, nonlabored breathing Cardio: regular rate, regular rhythm Abdomen: nondistended, normoactive bowel sounds, soft, nontender to palpation : Wearing depends Extremities: no edema, erythema, or tenderness to palpation, DP pulses 2+ bilaterally. Bilateral LE strength
[2021-02-07] MEDS: RIVAROXABAN 20 MG TABLET PO (16:31)
[2021-02-07] MEDS: polyethylene glycoL 3350 17 GM POWD.PACK PO (16:35)
[2021-02-07 22:00] VITALS: BP 114/81; PULSE 74; RESP 18; TEMP 36.2; O2SAT 94
[2021-02-07] MEDS: MIRTAZAPINE 15 MG TABLET PO (22:12)
[2021-02-07] MEDS: DOCUSATE SODIUM 100 MG CAPSULE PO (22:12)
[2021-02-08 06:00] VITALS: BP 126/86; PULSE 86; RESP 18; TEMP 35.9; O2SAT 95
[2021-02-08] MEDS: THYROID 30 MG TABLET PO (06:05)
[2021-02-08 06:51] LABS: Anion Gap 8 mmol/L (8-16); Blood Urea Nitrogen 23 mg/dL (7-17); Calcium 9.9 mg/dL (8.4-10.2); Carbon Dioxide 25 mmol/L (22-30); Chloride 107 mmol/L (98-107); Estimated CRCL calculation 48 ml/min; Estimated Glomerular Filt Rate > 60; Glucose 96 mg/dL (65-110); Magnesium 2.3 mg/dL (1.6-2.3); Potassium 3.5 mmol/L (3.4-5.0); Sodium 140 mmol/L (137-145)
[2021-02-08] MEDS: HYDROcodone/acetaminophen (*CRX) 5-325 MG TABLET 1 TAB PO ×2 (08:07→14:11)
[2021-02-08] MEDS: DOCUSATE SODIUM 100 MG CAPSULE PO (08:08)
[2021-02-08] MEDS: polyethylene glycoL 3350 17 GM POWD.PACK PO (08:08)
[2021-02-08] MEDS: BACLOFEN 10 MG TABLET 20 MG PO (08:08)
[2021-02-08] MEDS: dilTIAZem HCL CD 180 MG CAP.ER.24H PO (08:08)
[2021-02-08 11:35] VITALS: BP 102/64
[2021-02-08 12:19] VITALS: BP 110/68; BP 119/74
--- NOTE | 2021-02-08 13:07 | PM.DS ---
DS: Admitting Diagnosis Discharge Date 02/08/2021 Admitting Diagnosis Compression fracture of L1 vertebrae DS: Discharge Diagnosis Discharge Diagnosis (1) Compression fracture of L1 lumbar vertebra: Qualifiers: Encounter type: initial encounter Qualified Code(s): S32.010A - Wedge compression fracture of first lumbar vertebra, initial encounter for closed fracture Code(s): S32.010A - Wedge compression fracture of first lumbar vertebra, initial encounter for closed fracture Status: Acute Assessment and Plan: Secondary to fall. Lumbar spine CT showed L1 mild compression fracture acute or with acute component as well as chronic L3 compression fracture. Supportive care provided including analgesics, ice, heat p.r.n. Evaluated by PT/OT. Will continue therapy at SNF. Continue with baclofen She had significant symptomatic improvement. (2) Intractable back pain: Code(s): M54.9 - Dorsalgia, unspecified Status: Acute Assessment and Plan: Improved significantly. No worrisome signs or symptoms including saddle anesthesia, loss of bowel or bladder control, numbness, or tingling. Plan as above. (3) Neuropathy: Code(s): G62.9 - Polyneuropathy, unspecified Status: Acute Assessment and Plan: Chronic. She has been followed by Dr. Crawford for this. (4) Chronic constipation: Code(s): K59.09 - Other constipation Status: Acute Assessment and Plan: Likely related to opioid use. Last bowel movement 3 days prior to presentation Received 1 dose of Relistor on admission MiraLax and Colace daily Dulcolax suppository prn Limit narcotics and encourage mobility (5) Chronic atrial fibrillation: Code(s): I48.20 - Chronic atrial fibrillation, unspecified Status: Acute Assessment and Plan: Rate is controlled and she remained asymptomatic Continue home Cardizem and Xarelto (6) Acquired hypothyroidism: Code(s): E03.9 - Hypothyroidism, unspecified Status: Acute Assessment and Plan: TSH is slightly elevated with normal T4 and T3 Continue [place] Thyroid 30 mg daily She will benefit from repeat TSH with reflex in 4-6 weeks as an outpatient DS: Summary Hospital Course Hospital Course: Date of admission: 02/06/2021 Date of discharge: 02/08/2021 Lorena Gurrola is an 80-year-old female with a history atrial fibrillation on chronic anticoagulation, anxiety, hypothyroidism, peripheral neuropathy who presented to the emergency department on 02/06/2021 with worsened low back pain ongoing for 2 days after a fall, as well as right ankle pain. On presentation to the emergency department, her vital signs were stable, she was afebrile, ankle x-ray negative for fracture, tibia/fibula x-ray without acute osseous findings, lumbar spine x-ray with L1, L3, and L4 compression fractures as well as lumbar spondylosis, and lumbar CT showed L1 mild compression fracture that appears acute as well as chronic L3 compression an L4 burst fracture. She was admitted to the hospitalist service for further evaluation and management of low back pain. Supportive care provided. She had significant symptomatic improvement. She was evaluated by PT/OT and will continue therapy at SNF. She was feeling much better and felt comfortable with plans to discharge to SNF. Given her overall improvement, she was determined to no longer require inpatient care and was felt to be stable for discharge. We discussed worrisome signs and symptoms for which to return and she was educated on her medications. She was discharged in hemodynamically stable condition on 02/08/2021. Status at Discharge Functional status at discharge: uses cane/walker Overall status at discharge: patient is progressing back to baseline Time Spent with Patient Time attestation: Total time spent providing and/or coordinating discharge services: 45 minutes Time spent: Nehemias
[2021-02-08] MEDS: BISACODYL 5 MG TABLET EC PO (13:14)
--- NOTE | 2021-02-08 13:33 | PC.NURSE ---
On 02/08/21, the student, [Ashlyn Arriaza ], provided care and completed [facility] documentation on this patient. I have reviewed the student's documentation and agree with the findings.
== END 2021-02-08 14:35 | disposition home or self-care (01) ==
LOC: ANHED 14:57 → ANH3MEDSUR 16:12
PROVIDERS: Physician Assistant; Admitting Provider Internal Medicine Nephrology; Emergency Provider Emergency Medicine; PCP Family Medicine; Visit Provider Nurse Practitioner
DX: S32.010A Wedge compression fracture of first lumbar vertebra, initial encounter for closed fracture (principal); I48.20 Chronic atrial fibrillation, unspecified; M54.9 Dorsalgia, unspecified; E03.9 Hypothyroidism, unspecified; G62.9 Polyneuropathy, unspecified; K59.09 Other constipation; F41.8 Other specified anxiety disorders; Z79.01 Long term (current) use of anticoagulants; Z86.19 Personal history of other infectious and parasitic diseases; W19.XXXA Unspecified fall, initial encounter; M47.816 Spondylosis without myelopathy or radiculopathy, lumbar region; Z79.891 Long term (current) use of opiate analgesic
CPT/HCPCS: 36415; 72110; 72131; 73590; 73610; 80048; 80053; 83605; 83735; 84439; 84443; 84480; 85025; 96372; 96374; 97116; 97161; 97165; 97530; 99285; A9270; G0378; J1885; J2212

== ENCOUNTER 2021-07-01 07:28 | Outpatient (RCR) | payer MEDICARE, SELFPAY ==
[2021-06-16 12:59] VITALS: BMI 27.5
== END 2021-08-19 12:26 | disposition home or self-care (01) ==
LOC: ANHWOC 07:28
PROVIDERS: PCP Family Medicine; Visit Provider Specialist
DX: R60.0 Localized edema (principal)
CPT/HCPCS: 29581; 99211; 99213; G0463

== ENCOUNTER 2021-07-29 06:33 | Outpatient (CLI) | payer MEDICARE, SELFPAY ==
--- NOTE | ~2021-07-29 | MR_ITS ---
EXAMINATION: MR lumbar spine wo [facility] EXAM DATE: 07/29/2021 08:10 INDICATION: Back pain, bilateral leg weakness. TECHNIQUE: Multi-sequential, multiplanar MR images of the lumbar spine were obtained without contrast . Sagittal T1, T2, T2 fat saturation images. Axial T2 weighted images. Correlation is made to [facility] 02/06/2021. FINDINGS: There is chronic, treated L1 burst fracture with mild to moderate loss of this vertebral bautista dy height posteriorly and moderate loss centrally and anteriorly. Only about 2 mm retropulsion. Mild to moderate chronic L3 compression and L4 burst fractures without retropulsion. There is acute or sub acute mild compression of L5 at the superior endplate. No spondylolysis. There is 5 millimeters anter olisthesis L4 on L5. Without spondylolysis. Scattered vertebral body hemangiomas. There is moderate d isc disease at L3-4. The conus medullaris terminates at the T12-L1 level and has normal signal intens ity and morphology. Largest liver cyst. Paraspinal soft tissue is unremarkable. Level by level evaluation: T12-L1: There is a mild diffuse disc bulge. Facet arthropathy: Mild. Neural foraminal stenosis: No stenosis. Central canal stenosis: No stenosis. L1-L2: There is a mild to moderate diffuse disc bulge. Facet arthropathy: Mild bilateral. Neural foraminal stenosis: Mild right. Central canal stenosis: Mild. L2-L3: There is a moderate diffuse disc bulge. Facet arthropathy: Moderate. Neural foraminal stenosis: Mild to moderate bilateral. Central canal stenosis: Mild. L3-L4: There is a moderate diffuse disc bulge. Facet arthropathy: Moderate, partially fused. Neural foraminal stenosis: Mild to moderate right, mild left. Central canal stenosis: Mild. L4-L5: There is a moderate diffuse disc bulge. Facet arthropathy: Moderate to severe. Neural foraminal stenosis: Mild to moderate bilateral. Central canal stenosis: Mild. L5-S1: There is a mild diffuse disc bulge. Facet arthropathy: Moderate. Neural foraminal stenosis: Minimal bilateral. Central canal stenosis: No stenosis. IMPRESSION: 1. Mild acute or subacute L5 compression. 2. Chronic T12, L1, L3 and L4 fractures. 3. L4-5 grade 1 anterolisthesis. Reviewed, dictated and finalized at location B. [employer]
--- NOTE | ~2021-07-29 | MR_ITS ---
EXAMINATION: MR thoracic spine wo con EXAM DATE: 07/29/2021 08:10 INDICATION: Low back pain, bilateral leg weakness. TECHNIQUE: Multi-sequential, multiplanar MR images of the thoracic spine were obtained without contra st. Sagittal T1, T2, T2 fat saturation, axial T2 weighted images reviewed. No prior study for compar eron. Correlation is made to CT lumbar spine 02/06/2021. FINDINGS: Interval development of T12 burst fracture with mild loss of this vertebral body height posteriorly, 4 mm superior endplate retropulsion, moderate loss of vertebral body height centrally. Mild central c anal stenosis at this level. This is probably subacute given appearance, amount of edema. The vertebr al body and disc heights are otherwise well maintained. The other thoracic vertebral body heights a re maintained. There is moderate mid thoracic disc disease. Mild diffuse thoracic disc disease. There is mild left neural foraminal stenosis at T11-T12, otherwise thoracic neural foramen widely patent. Several thoracic hemangiomas. The spinal cord signal intensity and intrinsic morphology is normal. P araspinal soft tissue is unremarkable. L1 treated burst fracture, correlate with lumbar spine report same date. IMPRESSION: 1. Interval development of subacute appearing T12 burst fracture. 2. Chronic appearing treated L1 burst fracture. 3. Moderate thoracic disc disease. No significant stenosis. Reviewed, dictated and finalized at location B. CEMAN
== END 2021-07-29 06:34 | disposition home or self-care (01) ==
PROVIDERS: PCP Family Medicine; Visit Provider Nurse Practitioner Acute Care
DX: M54.50 Low back pain, unspecified (principal); R29.898 Other symptoms and signs involving the musculoskeletal system
CPT/HCPCS: 72146; 72148

== ENCOUNTER 2021-08-03 09:30 | Outpatient (RCR) | payer MEDICARE, SELFPAY ==
--- NOTE | 2021-07-08 15:15 | PTOPEVAL ---
PHYSICAL THERAPY EVALUATION AND PLAN OF CARE 07-08-21 Thank you for referring Nafisa Gurrola to [facility] for the diagnosis of B LE lymphedema. She is scheduled to be seen for therapy? 3x/week for 4 weeks. Please review, sign, date and return this plan of care KENDALL. I agree with and certify that the following plan of care is medically necessary. Referring Physician Date Attending Provider: Janice Larios NP *PT Outpatient Evaluation Past Medical History Neurological History Hx Neurological Disorders No Significant History Cardiovascular History Hx Atrial Fibrillation Yes Hx Chest Pain Yes: occasional-- Hx Hypertension Yes: med control Respiratory History Hx Sleep Apnea Yes Hx Other Respiratory Disorders Yes: sinus surgeries Gastrointestinal History Hx Other Gastrointestinal Disorders Yes: Constipation- manage with stool softener med Genitourinary History Hx Urinary Tract Infection Yes Musculoskeletal History Hx Back Pain Yes: SPINAL STENOSIS; L 1 compression fracture Hx Fibromyalgia Yes Hx Other Musculoskeletal Disorders Yes: under care of pain management--to have MRI/ injections? Hematological History Hx Hematological Disorders No Significant History Endocrine History Hx Hypothyroidism Yes HEENT History Hx Macular Degeneration Yes: Right eye Integumentary History Hx Eczema Yes Reproductive History Hx Reproductive Disorders No Significant History Psychosocial History Hx Anxiety Yes Hx Depression Yes Pain History History of Any Previous or Ongoing No Significant History Instance of Pain Anesthesia History Hx Anesthesia Reactions No Significant History Evaluation Information Problem Diagnosis B LE lymphedema Onset December 2020 Prior Level of Function Home Setting Home Type Assisted Living Facility Living Situation Alone Mobility Assistive Devices (Used Last 3 Walker, Rollator Months) Comments Additional Prior Level of Function have helper 2x/wk for safety Comments with showering; indep with dressing and showering; meals, housekeeping and laundry provided at assisted living center; Pain Assessment Timing of Pain Assessment Timing of Pain Assessment Assessment Self Report Self Report Pain Level 0 Pain Score Pain Score 0: Self Report Additional Pain Score Comments no pain in legs, chronic pain
--- NOTE | 2021-07-20 13:52 | PCPTNOTE ---
pt is scheduled to have an MRI Sat, I called radiology and talked with Deyanira. She discussed pt with the MRI team , called me back and stated pt could not have the MRI if there is any moisture on her leg or lotion; there is a risk that her skin could be burned. Discussed with them rescheduling her MRI to be earlier in the day of her PT appt or the day before her appt, and pt could remove her wraps for the MRI. They are going to call pt and reschedule her MRI.
--- NOTE | 2021-08-03 11:59 | PTOPEVAL ---
PHYSICAL THERAPY DISCHARGE 08-03-21 Refer to the clinical summary below for her status today, compared to the initial evaluation. Discharge PT services; the goals were partially achieved. Thank you for referring Nafisa Gurrola to [facility].? Please review, sign, date and return this Discharge report KENDALL. I agree with and certify that the following plan of care is medically necessary. Referring Physician Date Attending Provider: Janice Larios NP Document 08/03/21 09:30 SAUL (Rec: 08/03/21 10:37 SAUL [id number]) Subjective Information Nafisa reports: frustrated Query Text:As Reported By Patient/ have to do this stuff the rest Family of her life; Pain Assessment Timing of Pain Assessment Timing of Pain Assessment Assessment Self Report Self Report Pain Level 0 Pain Score Pain Score 0: Self Report Lymphedema Evaluation Skin Inspection Location Left Lower Extremity,Right Lower Extremity Lymphedema Stage I Skin Inspection Comment R and L lower leg with slight redness over ~ 1/3 of lower leg; no edema over ankles- visible malleoli or dorsum of feet; no redness over toes; R medial- distal thigh with minimal fibrosis of tissue education/review: monitor thighs and feet for swelling- if they increase, will need to obtain johann, which she has info for; discussed and demo [employer] foot pieces-- measured for small long size and issued info for her; skin precautions, lotion, garment care and replacement, continue self MLD; to continue to walk as tolerated and do leg exercises. pt had a few questions, answered and clarified for her LE Circumferential Measurement Left LE Lymphedema Side Left Metatarsal Heads (cm) 19.8 Figure 8 of Ankle (cm) 47 8 cm From Bottom of Foot (cm) 21.4 12 cm From Bottom of Foot (cm) 21.5 16 cm From Bottom of Foot (cm) 23.8 20 cm From Bottom of Foot (cm) 26.8 24 cm From Bottom of Foot (cm) 30 28 cm From Bottom of Foot (cm) 32.8 32 cm From Bottom of Foot (cm) 33.6 36 cm From Bottom of Foot (cm) 35.5
== END 2021-08-03 13:56 | disposition home or self-care (01) ==
LOC: ANHPT 09:30
PROVIDERS: PCP Family Medicine; Visit Provider Nurse Practitioner Adult Health
DX: I89.0 Lymphedema, not elsewhere classified (principal)
CPT/HCPCS: 29581; 97140; 97162

== ENCOUNTER 2021-08-28 12:05 | Inpatient (IN) | payer MEDICARE, SELFPAY ==
[2021-08-28] VITALS (8 sets, daily range): BP systolic 99–118; BP diastolic 61–82; PULSE 98–121; RESP 16–24; TEMP 36.3–37.6; O2SAT 92–96; BMI 25.2
--- NOTE | ~2021-08-28 | XR_ITS ---
EXAMINATION: XR chest 1V portable DATE: 08/31/2021 09:37 INDICATION: Pneumonia. TECHNIQUE: A single frontal view of the chest was obtained. COMPARISON: CT abdomen and pelvis 08/28/2021 FINDINGS: There are airspace opacities at the lung bases, left worse than right. There is a diffuse i nterstitial pattern in the lungs, consistent with mild pulmonary edema. There is a small right pleura l effusion. No pneumothorax. Cardiomegaly is noted. There are changes of vertebroplasty in L1. There is an old healed fracture of proximal left humerus. IMPRESSION: 1. Mild pulmonary edema. 2. Airspace opacities at the lung bases, left worse than right, consistent with atelectasis versus pn eumonia. 3. Small right pleural effusion. 4. Cardiomegaly. Reviewed, dictated and finalized at location A. IMPRESSION: 1. Mild pulmonary edema. 2. Airspace opacities at the lung bases, left worse than right, consistent with atelectasis versus pneumonia. 3. Small right pleural effusion. 4. Cardiomegaly.
--- NOTE | ~2021-08-28 | CT_ITS ---
EXAMINATION: CT abdomen pelvis w con INDICATION: Generalized abdominal pain TECHNIQUE: Computed tomographic images of the abdomen and pelvis were obtained after the administrati on of 100 cc of Omnipaque 350 intravenous contrast. The dose-length product (DLP) was 437.70 mGy-cm. Automated exposure control and iterative reconstruction technique were employed. COMPARISON: MRI, 422 FINDINGS: Dependent airspace opacities are present in the lung bases. Cardiomegaly is noted. There is an age-indeterminate sternal fracture with step-off and nonunion. The caudal portion of the sternum is anteriorly displaced and slightly overriding. Cysts of the liver measure up to 8.2 cm in the right hepatic lobe. The spleen, pancreas, and adrenal glands are normal. The gallbladder is distended. The re is wall thickening of the gallbladder. A small amount of pericholecystic fluid is identified. Ther e is also a small volume of pelvic ascites. No pathologically enlarged abdominal or pelvic lymph node s are identified. There is no free intraperitoneal gas or evidence of bowel obstruction. The kidneys are unremarkable. There is a moderate volume of colonic stool. Lumbar and lower thoracic compression and burst fractures are unchanged since the recent MRI. IMPRESSION: 1. CT findings consistent with acute cholecystitis. Small volume of pelvic ascites is likely inflamma tory. 2. Airspace opacities of the lung bases, consistent with atelectasis and pneumonia. 3. 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 Reviewed, dictated and finalized at location A. IMPRESSION: 1. CT findings consistent with acute cholecystitis. Small volume of pelvic asci clinton is likely inflammatory. 2. Airspace opacities of the lung bases, consistent with atelectasis and pneumo noe. 3. 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
--- NOTE | ~2021-08-28 | US_ITS ---
EXAMINATION: US abdomen limited DATE: 08/29/2021 09:08 INDICATION: Cholecystitis. TECHNIQUE: Multiple grayscale and Doppler ultrasound images of the abdomen were obtained. COMPARISON: CT abdomen and pelvis 08/28/2021 FINDINGS: The visualized portions of the head and body of the pancreas are normal. There are cysts in the liver measuring up to 7.2 cm. No liver surface nodularity. The gallbladder is distended. Gallbla dder wall thickening is noted. There was a positive sonographic Tejeda sign. No visible gallstones. T he common duct is normal and measures 5 mm. There is normal flow in main portal vein. IMPRESSION: 1. Acute cholecystitis. Reviewed, dictated and finalized at location A. IMPRESSION: 1. Acute cholecystitis.
[2021-08-28 12:26] LABS: Basophils Percent Auto 0.3 % (0.2-1.2); Hematocrit 47.5 % (37.0-47.0); Immature Granulocyte Absolute 0.03 K/mm3 (0.00-0.031); Immature Granulocyte Percent A 0.3 % (0-0.5); Lymphocytes Absolute Auto 0.97 K/mm3 (0.9-3.2); Mean Corpuscular HGB Conc 33.7 g/dl (32-36); Mean Corpuscular Hemoglobin 30.4 pg (26-34); Mean Corpuscular Volume 90.1 fl (80-100); Monocytes Absolute Auto 0.7 K/mm3 (0.1-0.6); Monocytes Percent Auto 6.3 % (2.6-8.5); Neutrophils Absolute Auto 9.1 K/mm3 (1.3-6.7); Neutrophils Percent Auto 84.1 % (45.5-73.1); Platelet Count Result 238 k/mm3 (150-375); Red Blood Count 5.27 M/mm3 (4.2-5.4); Red Cell Distribution Width 16.3 % (11.5-14.5); White Blood Count 10.8 K/mm3 (4.5-10.0)
--- NOTE | 2021-08-28 12:35 | PC.NURSE ---
Dr. Mcgovern at bedside to assess pt.
[2021-08-28 12:37] LABS: Alanine Aminotransferase 103 U/L (4-35); Albumin Level 4.1 g/dL (3.5-5.1); Alkaline Phosphatase 193 U/L (38-126); Anion Gap 8 mmol/L (8-16); Aspartate Amino Transferase 81 U/L (14-36); Bilirubin,Total 1.1 mg/dL (0.2-1.3); Blood Urea Nitrogen 18 mg/dL (7-17); Calcium 9.3 mg/dL (8.4-10.2); Carbon Dioxide 26 mmol/L (22-30); Chloride 104 mmol/L (98-107); Estimated CRCL calculation 34 ml/min; Estimated Glomerular Filt Rate 53; Glucose 139 mg/dL (65-110); Lipase 207 U/L (23-300); Potassium 3.6 mmol/L (3.4-5.0); Sodium 138 mmol/L (137-145)
[2021-08-28] MEDS: SODIUM CHLORIDE 0.9% IV 1,000 ML 999 ML IV CONT (12:47)
[2021-08-28] MEDS: MORPHINE SULFATE (*CRX) 4 MG/ML INJ IV PUSH ×2 (12:51→20:21)
[2021-08-28] MEDS: ONDANSETRON INJ 4 MG/2 ML VIAL IV PUSH (12:52)
--- NOTE | 2021-08-28 12:55 | ED.ABDPAIN ---
HPI - Abdominal Pain General Chief Complaint: Abdominal Pain Stated Complaint: abd pain Time Seen by Provider: 08/28/21 12:21 Source: patient Mode of arrival: ambulatory Limitations: no limitations History of Present Illness HPI narrative: Patient is 80 years old white female presented to the ED with diffuse abdominal pain started 2 weeks ago. Patient denies any fever, chills, nausea, vomiting, diarrhea, constipation, urinary symptoms. Patient reports pain increases with movement, slightly better at rest, pain is all over, sharp pain. Patient denies any history of abdominal surgery Related Data Home Medications Medication Instructions Recorded Confirmed diltiazem HCl [DILT-XR] 180 mg PO DAILY 02/06/21 08/09/21 thyroid (pork) [[place] Thyroid] 30 mg PO DAILY 02/06/21 08/09/21 baclofen 10 mg PO TID 06/16/21 08/09/21 furosemide 40 mg PO DAILY 06/16/21 08/09/21 gabapentin 300 mg PO TID 06/16/21 08/09/21 ibuprofen 200 mg PO BID PRN 06/16/21 08/09/21 potassium chloride 20 meq PO DAILY 06/16/21 08/09/21 Allergies Allergy/AdvReac Type Severity Reaction Status Date / Time No Known Allergies Allergy Verified 08/28/21 12:23 Review of Systems Review of Systems: CONSTITUTIONAL: Denies fever, chills, or sweats. EYES: Denies visual changes, redness, or discharge. ENT: Denies rhinorrhea, congestion, sore throat, or otalgia. CARDIOVASCULAR: Denies chest pain, palpitations, or edema. RESPIRATORY: Denies cough or dyspnea. GASTROINTESTINAL: Denies abdominal pain, nausea, vomiting, or diarrhea. GENITOURINARY: Denies dysuria or hematuria. SKIN: Denies rash or itching. MUSCULOSKELETAL: Denies back pain, joint pain, or myalgia. NEUROLOGIC: Denies headache, numbness, or weakness. PSYCHIATRIC: Denies anxiety or depression. COUNT INCLUDES THE [facility] Past Medical History Medical History A-fib Anxiety Chronic constipation Depression History of hepatitis C Treated Hypothyroid Peripheral neuropathy Surgical History Surgical History H/O sinus surgery X3 History of tonsillectomy and adenoidectomy Family History Family History Father Family history of cardiovascular disease Mother Cerebrovascular accident Social History Social History Social History: The patient has never been or had any children. She lives with her 88-year-old sister. 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 The patient desires to be a full code and her friend Nicky is a durable power automation driver for healthcare. The patient is a lifelong nonsmoker. She does not use alcohol marijuana or illicit drugs. Smoking status: Never smoker Second hand tobacco smoke exposure: No Alcohol intake: former Drinks per week: 2 Substance use: never Substance use type: does not use Gender identity (if verbalized by the patient): Female Sexual Orientation (if Verbalized by the Patient): Straight or Heterosexual Spiritual care concerns: Yes Agree to blood products: Yes Exam Narrative: General appearance: Well-developed, well-nourished Skin: Normal color Head: Normocephalic, nontraumatic Eyes: Clear conjunctiva ENT: Oropharynx normal, ears normal, nose normal Neck: Supple, nontender Chest and respiratory: Airway patent, no respiratory distress, no accessory muscle use Heart: Regular rate/rhythm Abdomen: Soft, diffuse tenderness mainly right lower quadrant, positive guarding, no rebound, no organomegaly, quiet bowel sounds Vascular: Normal peripheral pulses, normal capillary refill. Musculoskeletal: Normal range of motion, nontender back Neurologic: Alert and oriented ?3, FAMILY SUPPORT COORDINATOR is normal as tested, no gross motor deficit
--- NOTE | 2021-08-28 13:01 | PC.NURSE ---
Patient off unit to CT.
[2021-08-28 14:29] LABS: Add Urine Microscopic? YES; Appearance Urine Clear (Clear); Bacteria Urine Trace /hpf; Bilirubin Urine Negative (Negative); Blood Urine 2+ (Negative); Color Urine Yellow (Yellow); Glucose Urine UA Negative (Negative); Ketones Urine Negative (Negative); Leukocyte Esterase Ur Negative LEU/UL (Negative); Mucus Urine Rare /lpf; Nitrate Urine Positive (Negative); Protein Urine Negative (Negative); Specific Grav Ur 1.024 (1.001-1.035); Urobilinogen Urine Negative mg/dL (<2.0)
--- NOTE | 2021-08-28 15:30 | ADMGEN ---
This patient, Nafisa Gurrola, was admitted to 2 Medical Room 257-01. Patient/family oriented to hospital policies and general routines including ID bracelet, bed and alarms, visiting hours, pain management, procedures, bathroom and other care routines, personal items, smoking policy, room service/diet, and visiting hours. Information on how to activate the Rapid Response Team has been discussed. Patient/Family are encouraged to report perceived risks to care and to ask questions if they do not understand what they are told or what they should do.
--- NOTE | 2021-08-28 15:45 | PM.IMHP ---
H&P: HPI History of Present Illness Date/Time: 08/28/21 15:45 Chief Complaint: Abdominal pain. Narrative: This is an 80-year-old female with chronic atrial fibrillation on anticoagulation, hypertension, and hypothyroidism who presented to the ED from home for evaluation of abdominal pain. She has had generalized abdominal pain for the past couple of weeks that she has a difficult time describing however notes that is occasionally sharp and shooting with movement or palpation. His seems to ease up with rest though she has on occasion had to take some Tylenol and ibuprofen to help with the discomfort. Over the last several days it has gotten worse and seems to be more localized into the upper abdomen. Her appetite has also been poor these last couple days and she has not had much to eat. Her friend encouraged her to come in today for evaluation and a CT of the abdomen and pelvis showed findings consistent with acute cholecystitis and she is being admitted in this setting. At the time my evaluation she is feeling a lot better however reports feeling ?a little bit out of it? after receiving IV morphine. The CT also showed airspace opacities of the lung bases consistent with atelectasis and pneumonia though with questioning she denies symptoms of pneumonia. Specifically she has not had fever, chills, sweats, cough, chest pain, or shortness of breath. No sick contacts. Review of Systems Review of Systems: Twelve systems were reviewed. No headache or neck ache. She denies sinus congestion, rhinorrhea, otalgia, and odynophagia. No chest pain, pleuritic pain, or palpitations. No cough or shortness of breath. She has not noticed any blood or mucus in the stool. No diarrhea, in fact she has occasional constipation. Except as documented, all other systems were reviewed and are negative. [facility] Past Medical History Medical History (Updated 08/28/21 @ 21:31 by Hailey Wilkinson PA-C) Anxiety Chronic anticoagulation Chronic atrial fibrillation Chronic constipation Common variable immunodeficiency Depression Eczema Fibromyalgia Hepatitis C Completed treatment. Hypothyroidism Left humeral fracture (06/10/19) Lymphedema Macular degeneration Osteoarthritis Osteoporosis Peripheral neuropathy Surgical History Surgical History (Updated 08/28/21 @ 14:24 by Hailey Wilkinson PA-C) History of sinus surgery x3 History of tonsillectomy and adenoidectomy Family History Family History Father Family history of cardiovascular disease Mother Cerebrovascular accident Other Hypertension Social History Social History (Updated 08/28/21 @ 21:18 by Hailey Wilkinson PA-C) Social History: The patient lives in assisted living at [facility]. She never and has no children. Her sister is at [facility] as well, but in the nursing care center. 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 Lifelong nonsmoker. No alcohol or illicit substance abuse. Surrogate decision maker: Nicky Remy, friend. Code status: Full code. Spiritual care concerns: No (Jainism) Agree to blood products: Yes Meds Home Medications and Allergies Home Medications Medication Instructions Recorded Confirmed Type diltiazem HCl [DILT-XR] 180 mg PO DAILY 02/06/21 08/28/21 History thyroid (pork) [[place] Thyroid] 30 mg PO DAILY 02/06/21 08/28/21 History docusate sodium 100 mg PO Q12HR #60 cap 02/08/21 08/28/21 Rx mirtazapine 15 mg tablet 15 mg PO HS #90 tablet 06/13/21 08/28/21 Rx rivaroxaban 20 mg tablet 20 mg PO DAILY #90 tablet 06/13/21 08/28/21 Rx baclofen 10 mg PO TID 06/16/21 08/28/21 History furosemide 40 mg PO DAILY 06/16/21 08/28/21 History gabapentin 300 mg PO TID 06/16/21 08/28/21 History potassium chloride 20 meq PO DAILY 06/16/21 08/28/21 History Allergies
[2021-08-28] MEDS: LACTATED RINGERS 1,000 ML 150 ML IV CONT (16:08)
[2021-08-28] MEDS: MIRTAZAPINE 15 MG TABLET PO (22:53)
[2021-08-28] MEDS: GABAPENTIN 300 MG CAPSULE PO (22:53)
[2021-08-28] MEDS: LACTATED RINGERS 1,000 ML 75 ML IV CONT (22:54)
[2021-08-29] VITALS (7 sets, daily range): BP systolic 101–120; BP diastolic 50–82; PULSE 101–118; RESP 16; TEMP 36.3–37.2; O2SAT 90–94
--- NOTE | 2021-08-29 | ECG_ITS ---
Measurements Intervals [place] Rate: 118 P: UT: 0 QRS: 24 QRSD: 81 T: -37 QT: 290 QTc: 408 Interpretive Statements ATRIAL FIBRILLATION WITH RAPID VENTRICULAR RESPONSE ST DEVIATION AND T-WAVE ABNORMALITY, CONSIDER ISCHEMIA Electronically Signed On 08-29-2021 14:30:36 CDT by Franko Harden M.D.
[2021-08-29] MEDS: MORPHINE SULFATE (*CRX) 2 MG/ML INJ IV PUSH (02:59)
[2021-08-29] MEDS: GABAPENTIN 300 MG CAPSULE PO ×3 (05:10→21:13)
[2021-08-29 05:13] LABS: Basophils Absolute Auto 0.1 K/mm3 (0.0-0.1); Basophils Percent Auto 0.8 % (0.2-1.2); Hematocrit 40.6 % (37.0-47.0); Immature Granulocyte Absolute 0.02 K/mm3 (0.00-0.031); Immature Granulocyte Percent A 0.3 % (0-0.5); Lymphocytes Absolute Auto 0.83 K/mm3 (0.9-3.2); Lymphocytes Percent Auto 10.6 % (18.3-44.2); Mean Corpuscular Hemoglobin 30.2 pg (26-34); Mean Corpuscular Volume 94.4 fl (80-100); Mean Platelet Volume 10.4 fl (7.4-10.4); Monocytes Absolute Auto 0.4 K/mm3 (0.1-0.6); Neutrophils Absolute Auto 6.6 K/mm3 (1.3-6.7); Neutrophils Percent Auto 83.3 % (45.5-73.1); Platelet Count Result 158 k/mm3 (150-375); Red Cell Distribution Width 16.6 % (11.5-14.5); White Blood Count 7.9 K/mm3 (4.5-10.0)
[2021-08-29 05:36] LABS: Alanine Aminotransferase 58 U/L (4-35); Albumin Level 3.1 g/dL (3.5-5.1); Alkaline Phosphatase 118 U/L (38-126); Anion Gap 4 mmol/L (8-16); Aspartate Amino Transferase 38 U/L (14-36); Blood Urea Nitrogen 20 mg/dL (7-17); Calcium 8.3 mg/dL (8.4-10.2); Carbon Dioxide 28 mmol/L (22-30); Chloride 107 mmol/L (98-107); Estimated CRCL calculation 36 ml/min; Estimated Glomerular Filt Rate 53; Glucose 119 mg/dL (65-110); Magnesium 2.1 mg/dL (1.6-2.3); Potassium 3.2 mmol/L (3.4-5.0); Sodium 139 mmol/L (137-145)
[2021-08-29 08:25] LABS: INR 2.5; Partial Thromboplastin Time 48.3 SECONDS (22.3-36.8)
--- NOTE | 2021-08-29 09:07 | PM.IMPN ---
Progress Note: A&P Assessment and Plan (1) Acute cholecystitis: Code(s): K81.0 - Acute cholecystitis Status: Acute Assessment and Plan: Continue Zosyn. Antiemetics and analgesics available as needed. NPO status though may take medications with sips of water. Surgery consulted. hold xarelto (2) Hypothyroidism: Code(s): E03.9 - Hypothyroidism, unspecified Status: Acute Assessment and Plan: Continue levothyroxine. (3) Chronic atrial fibrillation: Code(s): I48.20 - Chronic atrial fibrillation, unspecified Status: Acute Assessment and Plan: She actually sounds to be in a sinus rhythm. EKG ordered. Continue diltiazem hold xarelto. 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 (5) Abnormal finding of lung: Code(s): R09.89 - Other specified symptoms and signs involving the circulatory and respiratory systems Status: Acute Assessment and Plan: CT shows airspace opacities of the lung bases, consistent with atelectasis and pneumonia. cont iv abx Subjective Date/time seen: 08/29/21 09:07 Interval history: 80-year-old female with chronic atrial fibrillation on anticoagulation, hypertension, and hypothyroidism who presented to the ED from home for evaluation of abdominal pain. CT scan of the abdomen concern for cholecystitis possible pneumonia Patient feels better but still complaining of abdominal pain Patient denies fever headache chest pain I am seeing the patient for abdominal pain Exam Narrative: Alert Chest decreased air entry bilateral Abdomen tender nondistended CVS S1 + S2 Lower extremity edema Objective Data Vital Signs Vital Signs: Vital Signs - 24 hr 08/28/21 12:19 08/28/21 14:56 08/28/21 14:57 Temperature 99.7 F H Pulse Rate 121 H Respiratory Rate 24 H Blood Pressure 118/73 99/82 L Pulse Oximetry 96 93 93 08/28/21 15:00 08/28/21 15:01 08/28/21 15:02 Temperature Pulse Rate Respiratory Rate Blood Pressure 102/68 Pulse Oximetry 94 94 92 08/28/21 19:02 08/28/21 22:00 08/29/21 06:00 Temperature 97.3 F L 98.7 F 97.4 F L Pulse Rate 98 109 H 113 H Respiratory Rate 20 16 16 Blood Pressure 110/61 107/63 102/50 L Pulse Oximetry 95 95 93 08/29/21 07:50 08/29/21 08:07 Temperature Pulse Rate Respiratory Rate 16 Blood Pressure Pulse Oximetry 93 93 Intake/Output Intake/Output: Intake & Output 08/26/21 08/27/21 08/28/21 08/29/21 23:59 23:59 23:59 23:59 Intake Total 2100 50 Output Total 300 800 Balance 1800 -750 Meds/Results Medications: Active Medications Generic Name Dose Route Start Last Admin Trade Name Freq PRN Reason Stop Dose Admin Baclofen 10 mg 08/29/21 09:00 Baclofen 10 Mg Tablet PO TID JHON Diltiazem HCl 180 mg 08/29/21 09:00 Diltiazem Hcl Cd 180 Mg Cap.Er.24h PO DAILY JHON Docusate Sodium 100 mg 08/29/21 09:00 Docusate Sodium 100 Mg Capsule PO Q12HR JHON Furosemide 40 mg 08/29/21 09:00 Furosemide 40 Mg Tablet PO DAILY JHON Gabapentin 300 mg 08/28/21 22:00 08/29/21 05:10 Gabapentin 300 Mg Capsule PO 300 mg Q8HR JHON Administration Piperacillin Sod/Tazobactam Sod 2.25 gm in 50 mls @ 100 mls/hr 08/28/21 21:00 08/29/21 02:33 Zosyn 2.25 Gm/D5w 50 Ml IVPB Infused Q6H JHON Infusion Lactated Ringer's 1,000 mls @ 75 mls/hr 08/28/21 13:50 08/28/21 22:54 Lr - Lactated Ringers Iv IV CONT 75 mls/hr .[id number] JHON Administration Potassium Chloride 40 meq/ 520 mls @ 130 mls/hr 08/29/21 09:15 Sodium Chloride IVPB 08/29/21 13:14 ONCE ONE Mirtazapine 15 mg 08/28/21 21:00 08/28/21 22:53 Mirtazapine 15 Mg Tablet PO 15 mg HS JHON Administration Morphine Sulfate 2 mg 08/28/21 21:45 08/29/21 02:59 Morphine Sulfate (*
[2021-08-29] MEDS: POTASSIUM CHLORIDE INJ 40 MEQ in SODIUM CHLORIDE 0.9% IV 500 ML 130 MEQ IVPB (09:13)
[2021-08-29] MEDS: BACLOFEN 10 MG TABLET PO ×3 (09:17→16:49)
[2021-08-29] MEDS: POTASSIUM CHLORIDE 20 MEQ TABLET.ER PO (09:17)
[2021-08-29] MEDS: dilTIAZem HCL CD 180 MG CAP.ER.24H PO (09:18)
[2021-08-29] MEDS: THYROID 30 MG TABLET PO (09:18)
--- NOTE | 2021-08-29 09:49 | PM.CNGS ---
Assessment and Plan Assessment and plan (1) Acute cholecystitis: Code(s): K81.0 - Acute cholecystitis Status: Acute Assessment and Plan: CT and RUQ ultrasound reviewed and discussed with the patient in detail. Both suggest findings of acute cholecystitis, but without definitive gallstones identified. This could be acute acalculous cholecystitis, although this is less common. The patient continues to have abdominal pain and her exam correlates with these findings. Discussed treatment options with the patient, including the option of proceeding with a laparoscopic cholecystectomy, possible open, by Dr. Barton. Her co-morbidities and anticoagulation do increase her risks for surgery. Description of the procedure, risks, benefits, expected outcomes, and expected recovery were discussed with the patient in detail. All questions were answered. She would like to proceed with surgery. Given her anticoagulation, we will plan to proceed with surgery tomorrow. We will allow her to have clear liquids today and make her NPO after midnight. Continue broad-spectrum IV antibiotics. Thank you for allowing us to see the patient in consultation and we will continue to follow along with you. (2) Chronic anticoagulation: Code(s): Z79.01 - group home (current) use of anticoagulants Status: Acute Assessment and Plan: Continue to hold Xarelto for surgery. INR 2.5 this morning. Suspected that yesterday morning was her last dose of Xarelto. Will schedule her for surgery tomorrow to allow at least 48 hours after last dose. Repeat labs tomorrow. (3) Chronic atrial fibrillation: Code(s): I48.20 - Chronic atrial fibrillation, unspecified Status: Acute Assessment and Plan: Management per Hospitalist. Rate controlled at this time. EKG showed atrial fibrillation with heart rate of 118. (4) Abnormal finding of lung: Code(s): R09.89 - Other specified symptoms and signs involving the circulatory and respiratory systems Status: Acute Assessment and Plan: CT incidentally noted findings consistent with atelectasis and/or pneumonia. No complaints or symptoms that correlate with these findings. Management per Hospitalist. Continuing to monitor. Additional Plan I have discussed the patient's case and plan of care with Dr. Barton. History of Present Illness Consult details Consult date: 08/29/21 Reason for consult: other (Acute cholecystitis) Requesting physician: Colton Mcgovern MD Narrative: This is an 80-year-old female with a history of atrial fibrillation on chronic anticoagulation, hypertension, and hypothyroidism, who presented to the emergency department at home for evaluation of abdominal pain. She reports having generalized abdominal pain over the past few weeks that she has difficulty describing. She cannot recall if it was aggravated by food or if the pain fluctuated in severity. She is having a hard time providing specific history in general when asking her questions. She denies any nausea, vomiting, or bloating. Reports her bowels have been moving normally. She does report that her appetite has been poor over the past few days. Her friend encouraged her to come in to the ER yesterday for evaluation. CT scan of the abdomen and pelvis showed evidence of acute cholecystitis without evidence of cholelithiasis. This also incidentally noted airspace opacities of the lung bases consistent with atelectasis and pneumonia. Although, she denies any symptoms of pneumonia such as shortness of breath, chest pain, cough, or fever. [place] [id number], AST 81, ALT 103, alk-phos 193, and normal total bilirubin and lipase. She has been admitted to the hospitalist service. Labs this morning also showed elevated PT, PTT, and an INR of 2.5. She is currently taking Xarelto and cannot recall her last dose. The nurse today reports that she helped admit the patient yesterday and the patient was report
[2021-08-29] MEDS: BISACODYL 10 MG SUPPOSITORY RECTAL (12:41)
[2021-08-29] MEDS: LACTATED RINGERS 1,000 ML 75 ML IV CONT (16:52)
[2021-08-29] MEDS: DOCUSATE SODIUM 100 MG CAPSULE PO (21:13)
[2021-08-29] MEDS: MIRTAZAPINE 15 MG TABLET PO (21:13)
[2021-08-30] VITALS (18 sets, daily range): BP systolic 106–120; BP diastolic 54–94; PULSE 91–109; RESP 16–24; TEMP 36.3–37.6; O2SAT 89–96
[2021-08-30] MEDS: MORPHINE SULFATE (*CRX) 2 MG/ML INJ IV PUSH (05:24)
[2021-08-30 05:46] LABS: Basophils Percent Auto 0.4 % (0.2-1.2); Eosinophils Absolute Auto 0.1 K/mm3 (0-0.3); Eosinophils Percent Auto 0.8 % (0-4.4); Hematocrit 38.2 % (37.0-47.0); Hemoglobin 12.3 g/dL (12.0-15.0); Immature Granulocyte Absolute 0.04 K/mm3 (0.00-0.031); Immature Granulocyte Percent A 0.5 % (0-0.5); Lymphocytes Absolute Auto 1.24 K/mm3 (0.9-3.2); Lymphocytes Percent Auto 14.8 % (18.3-44.2); Mean Corpuscular HGB Conc 32.2 g/dl (32-36); Mean Corpuscular Hemoglobin 29.7 pg (26-34); Mean Corpuscular Volume 92.3 fl (80-100); Mean Platelet Volume 10.1 fl (7.4-10.4); Monocytes Absolute Auto 0.5 K/mm3 (0.1-0.6); Monocytes Percent Auto 5.8 % (2.6-8.5); Neutrophils Absolute Auto 6.5 K/mm3 (1.3-6.7); Neutrophils Percent Auto 77.7 % (45.5-73.1); Platelet Count Result 166 k/mm3 (150-375); Red Blood Count 4.14 M/mm3 (4.2-5.4); Red Cell Distribution Width 16.2 % (11.5-14.5); White Blood Count 8.4 K/mm3 (4.5-10.0)
[2021-08-30 05:58] LABS: INR 1.5; Prothrombin Time 17.6 Seconds (11.1-14.7)
[2021-08-30 05:59] LABS: Partial Thromboplastin Time 36.1 SECONDS (22.3-36.8)
[2021-08-30 06:00] LABS: Alanine Aminotransferase 43 U/L (4-35); Alkaline Phosphatase 103 U/L (38-126); Anion Gap 4 mmol/L (8-16); Aspartate Amino Transferase 29 U/L (14-36); Blood Urea Nitrogen 20 mg/dL (7-17); Calcium 8.4 mg/dL (8.4-10.2); Carbon Dioxide 26 mmol/L (22-30); Chloride 106 mmol/L (98-107); Estimated CRCL calculation 40 ml/min; Estimated Glomerular Filt Rate 60; Glucose 126 mg/dL (65-110); Potassium 3.7 mmol/L (3.4-5.0); Sodium 136 mmol/L (137-145)
--- NOTE | 2021-08-30 07:48 | PC.NURSE ---
Spoke with BALDEMAR Franz from Preop. Okay to administer Cardizem and Thyroid. Give antibiotics during surgery.
[2021-08-30] MEDS: dilTIAZem HCL CD 180 MG CAP.ER.24H PO (08:00)
[2021-08-30] MEDS: THYROID 30 MG TABLET PO (08:00)
--- NOTE | 2021-08-30 08:12 | ECG_ITS ---
Measurements Intervals [place] Rate: 104 P: CA: 0 QRS: 32 QRSD: 86 T: -21 QT: 305 QTc: 403 Interpretive Statements ATRIAL FIBRILLATION WITH RAPID VENTRICULAR RESPONSE LOW QRS VOLTAGE IN PRECORDIAL LEADS NONSPECIFIC ST & T-WAVE ABNORMALITY Electronically Signed On 08-30-2021 8:49:25 CDT by Franko Harden M.D.
--- NOTE | 2021-08-30 08:26 | PM.IMPN ---
Progress Note: A&P Assessment and Plan (1) Acute cholecystitis: Code(s): K81.0 - Acute cholecystitis Status: Acute Assessment and Plan: Continue Zosyn. Antiemetics and analgesics available as needed. NPO status though may take medications with sips of water. Surgery consulted. hold xarelto Cholecystectomy 08/29/2021 (2) Hypothyroidism: Code(s): E03.9 - Hypothyroidism, unspecified Status: Acute Assessment and Plan: Continue levothyroxine. (3) Chronic atrial fibrillation: Code(s): I48.20 - Chronic atrial fibrillation, unspecified Status: Acute Assessment and Plan: She actually sounds to be in a sinus rhythm. EKG ordered. Continue diltiazem hold xarelto resume once okay with surgery. (4) Chronic anticoagulation: Code(s): Z79.01 - retirement (current) use of anticoagulants Status: Acute Assessment and Plan: Hold rivaroxaban in anticipation of surgery. Which will be resumed once okay with surgery (5) Abnormal finding of lung: Code(s): R09.89 - Other specified symptoms and signs involving the circulatory and respiratory systems Status: Acute Assessment and Plan: CT shows airspace opacities of the lung bases, consistent with atelectasis cannot rule out pneumonia. cont iv abx Re-evaluate in a.m. Subjective Date/time seen: 08/30/21 08:26 Interval history: 80-year-old female with chronic atrial fibrillation on anticoagulation, hypertension, and hypothyroidism who presented to the ED from home for evaluation of abdominal pain. CT scan of the abdomen concern for cholecystitis possible pneumonia Salter was held cholecystectomy 08/29/2021 Patient feels better but still complaining of abdominal pain Had neck pain probably musculoskeletal Patient denies fever headache chest pain I am seeing the patient for abdominal pain Exam Narrative: Alert Chest decreased air entry bilateral Abdomen tender nondistended CVS S1 + S2 Lower extremity edema Objective Data Vital Signs Vital Signs: Vital Signs - 24 hr 08/29/21 10:00 08/29/21 14:10 08/29/21 18:00 Temperature 98.2 F 99.0 F 98.7 F Pulse Rate 118 H 102 H 101 H Respiratory Rate 16 16 16 Blood Pressure 101/65 102/68 104/66 Pulse Oximetry 90 92 93 08/29/21 22:00 08/30/21 02:00 08/30/21 06:00 Temperature 98.8 F 98.5 F 98.9 F Pulse Rate 116 H 107 H 100 Respiratory Rate 16 16 16 Blood Pressure 120/82 115/63 113/72 Pulse Oximetry 94 94 94 Intake/Output Intake/Output: Intake & Output 08/27/21 08/28/21 08/29/21 08/30/21 23:59 23:59 23:59 23:59 Intake Total 2100 2640 50 Output Total 300 1500 Balance 1800 1140 50 Meds/Results Medications: Active Medications Generic Name Dose Route Start Last Admin Trade Name Ally PRN Reason Stop Dose Admin Baclofen 10 mg 08/29/21 09:00 08/29/21 16:49 Baclofen 10 Mg Tablet PO 10 mg TID JHON Administration Diltiazem HCl 180 mg 08/29/21 09:00 08/30/21 08:00 Diltiazem Hcl Cd 180 Mg Cap.Er.24h PO 180 mg DAILY JHON Administration Docusate Sodium 100 mg 08/29/21 09:00 08/29/21 21:13 Docusate Sodium 100 Mg Capsule PO 100 mg Q12HR JHON Administration Furosemide 40 mg 08/29/21 09:00 08/29/21 09:19 Furosemide 40 Mg Tablet PO Not Given DAILY JHON Gabapentin 300 mg 08/28/21 22:00 08/30/21 05:23 Gabapentin 300 Mg Capsule PO Not Given Q8HR JHON Piperacillin Sod/Tazobactam Sod 2.25 gm in 50 mls @ 100 mls/hr 08/28/21 21:00 08/30/21 02:34 Zosyn 2.25 Gm/D5w 50 Ml IVPB Infused Q6H JHON Infusion Lactated Ringer's 1,000 mls @ 75 mls/hr 08/28/21 13:50 08/29/21 16:52 Lr - Lactated Ringers Iv IV CONT 75 mls/hr .[id number] JHON Administration Mirtazapine 15 mg 08/28/21 21:00 08/29/21 21:13 Mirtazapine 15 Mg Tablet PO 15 mg HS JHON Administration Morphine Sulfate 2 mg 08/28/21 21:45 08/30/21 05:24 Morphine Sulfate (*Crx) 2 Mg/Ml Inj IV PUSH 2 mg
--- NOTE | 2021-08-30 08:53 | PC.NURSE ---
To OR per hood, IV saline locked. Report given to BALDEMAR Franz.
--- NOTE | 2021-08-30 09:21 | WPDANESEPPF ---
Anes - Initial Pre Proc Eval Procedure: Operation Date: 08/30/21 10:00 Proposed Procedures p Laparoscopic Cholecystectomy - Lashae Barton MD Date/Time: 08/30/21 09:21 Surgeon: Анна Mariee MD Pre Op Diagnosis: Acute cholecystitis Patient Data Age: 80 Gender: F Height: 1.68 m Weight: 78 kg Last Vital Signs Temp 37.2 C 08/30/21 06:00 Pulse 100 08/30/21 06:00 Resp 16 08/30/21 06:00 BP 113/72 08/30/21 06:00 Pulse Ox 94 08/30/21 06:00 Allergies Allergy/AdvReac Type Severity Reaction Status Date / Time No Known Allergies Allergy Verified 08/28/21 16:19 Home Medications Medication Instructions Recorded Confirmed Type diltiazem HCl [DILT-XR] 180 mg PO DAILY 02/06/21 08/28/21 History thyroid (pork) [[place] Thyroid] 30 mg PO DAILY 02/06/21 08/28/21 History docusate sodium 100 mg PO Q12HR #60 cap 02/08/21 08/28/21 Rx mirtazapine 15 mg tablet 15 mg PO HS #90 tablet 06/13/21 08/28/21 Rx rivaroxaban 20 mg tablet 20 mg PO DAILY #90 tablet 06/13/21 08/28/21 Rx baclofen 10 mg PO TID 06/16/21 08/28/21 History furosemide 40 mg PO DAILY 06/16/21 08/28/21 History gabapentin 300 mg PO TID 06/16/21 08/28/21 History potassium chloride 20 meq PO DAILY 06/16/21 08/28/21 History Laboratory Tests 08/30/21 08/30/21 08/30/21 05:41 05:41 05:41 WBC 8.4 K/mm3 K/mm3 (4.5-10.0) RBC 4.14 M/mm3 L M/mm3 (4.2-5.4) Hgb 12.3 g/dL g/dL (12.0-15.0) Hct 38.2 % % (37.0-47.0) MCV 92.3 fl fl (80-100) MCH 29.7 pg pg (26-34) MCHC 32.2 g/dl g/dl (32-36) RDW 16.2 % H % (11.5-14.5) Plt Count 166 k/mm3 k/mm3 (150-375) MPV 10.1 fl fl (7.4-10.4) Immature Gran % (Auto) 0.5 % % (0-0.5) Neut % (Auto) 77.7 % H % (45.5-73.1) Lymph % (Auto) 14.8 % L % (18.3-44.2) [place] % (Auto) 5.8 % % (2.6-8.5) Eos % (Auto) 0.8 % % (0-4.4) Baso % (Auto) 0.4 % % (0.2-1.2) Lymph # (Auto) 1.24 K/mm3 K/mm3 (0.9-3.2) [place] # (Auto) 0.5 K/mm3 K/mm3 (0.1-0.6) Eos # (Auto) 0.1 K/mm3 K/mm3 (0-0.3) Baso # (Auto) 0.0 K/mm3 K/mm3 (0.0-0.1) Abs Immat Gran (auto) 0.04 K/mm3 H K/mm3 (0.00-0.031) Absolute Neuts (auto) 6.5 K/mm3 K/mm3 (1.3-6.7) Absolute Nucleated RBC 0.0 K/mm3 K/mm3 (0.0-0.012) Nucleated RBC % 0.0 % % (0.0-0.2) PT 17.6 Seconds H D Seconds (11.1-14.7) INR 1.5 APTT 36.1 SECONDS SECONDS (22.3-36.8) Sodium 136 mmol/L L mmol/L (137-145) Potassium 3.7 mmol/L mmol/L (3.4-5.0) Chloride 106 mmol/L mmol/L (98-107) Carbon Dioxide 26 mmol/L mmol/L (22-30) Anion Gap 4 mmol/L L mmol/L (8-16) BUN 20 mg/dL H mg/dL (7-17) Creatinine 0.90 mg/dL mg/dL (0.7-1.0) Estim Creat Clear Calc 40 ml/min ml/min Estimated GFR 60 (59 - ) Glucose 126 mg/dL H mg/dL (65-110) Calcium 8.4 mg/dL mg/dL (8.4-10.2) Total Bilirubin 1.0 mg/dL mg/dL (0.2-1.3) AST 29 U/L U/L (14-36) ALT 43 U/L H U/L (4-35) Alkaline Phosphatase 103 U/L U/L (38-126) Total Protein 6.0 g/dL L g/dL (6.3-8.2) Albumin 3.0 g/dL L g/dL (3.5-5.1) Patient hx anesthesia problems: none Family hx anesthesia problems: none Results Review: All pre-operative results and documents have been reviewed as part of the pre-operative evaluation. [facility] Past Medical History Medical History Anxiety Chronic anticoagulation Chronic atrial fibrillation Chronic constipation Common variable immunodeficiency Depression Eczema Fibromyalgia Hepatitis C Completed treatment. Hypothyroidism Left humeral fracture (06/10/19) Lymphedema Macular degeneration
--- NOTE | 2021-08-30 10:01 | WPDHPUPDATE1 ---
History and Physical Update Update Date/Time: 08/30/21 10:01 History and Physical has been reviewed, including an updated exam of the patient. There are NO changes in the patient's condition. Risks, benefits, and alternatives have been discussed and questions answered. Patient agrees to proceed with procedure.
[2021-08-30] MEDS: LACTATED RINGERS 1,000 ML 30 ML IV CONT ×2 (11:23)
--- NOTE | 2021-08-30 11:26 | W.PM.PROC2 ---
Procedure Note - Detailed Date of Procedure 08/30/21 Pre-op Diagnosis Acute cholecystitis Post-op Diagnosis Other ( Acute gangrenous cholecystitis) Procedure Performed Laparoscopic cholecystectomy Surgeon Lashae Barton MD Anesthesia General Indications 80-year-old female presenting with severe abdominal pain. Workup, including imaging, significant for acute cholecystitis. Findings Acute gangrenous cholecystitis, severe inflammation Description of Procedure The patient was taken to the operating room placed in the supine position. After adequate induction of general anesthesia, the patient was prepped and draped in normal sterile fashion. A time-out was then performed to verify the patient's identity as well as the procedure being performed. I then made a 5 mm incision in the infraumbilical region. Through this, a Veress needle was placed into the peritoneal cavity and CO2 gas was then insufflated. After adequate pneumoperitoneum was achieved, the Veress needle was removed and a 5 mm optiview trocar was placed through this incision under direct visualization. I then placed the laparoscope through this trocar site and under direct visualization placed a further 12 mm subxiphoid port as well as 2 additional 5 mm ports in the right upper abdomen. There was a noted inflammatory mass in the RUQ. Once I was able to dissect the inflammatory rind off, the gallbladder was then identified and was noted to be severely inflamed, distended. I was able to place a grasper at the dome of the gallbladder and this was retracted anterior and cephalad up over the liver. A 2nd retractor was then placed at the infundibulum and retracted laterally, this allowed visualization of the triangle of Calot. Of note there was noted inflammatory changes, friability in the area of the neck of the gallbladder and in the area of the triangle. After very tedious dissection, I then was able to visualize the cystic duct in its entirety from its proximal insertion into the gallbladder, to its distal junction with the common hepatic/common bile duct junction. At this point, I carefully skeletonized the proximal cystic duct with the [place] dissector. I then clipped and transected the proximal cystic duct. Next I visualized the cystic artery. Again the artery was skeletonized, clipped, and transected. I then used the Bovie cautery to take down the peritoneal attachments of the gallbladder off the liver bed. This was very difficult given the amount of inflammation, inflammatory changes in the posterior space. Once the gallbladder specimen was completely detached, an endo-pouch was placed through the 12 mm port site. I then placed the gallbladder specimen into the Endo pouch and removed the endo-pouch from the 12 mm port site. The specimen will now be sent to pathology for further review. I then copiously irrigated the right upper quadrant. Some mild oozing was noted in the liver bed and this was controlled with the bovie cautery. I then placed some hemostatic powder in the liver bed. Hemostasis was noted in the liver bed, the clips were noted to be in good position on both the cystic duct stump and the cystic artery stump. Given the amount of inflammation, I left a MARI drain in the RUQ coming out from the most lateral R abdominal 5 mm port. No other obvious pathology was noted in the right upper quadrant, although there was extensive inflammatory exudate. I then moved the laparoscope to the subxiphoid port. No iatrogenic injury or other pathology was noted in the lower abdomen. I then closed the 12 mm trocar site under direct visualization using the Santos cone and 0 Vicryl suture. At this point, the abdomen was desufflated and all ports removed. All port sites were then closed with 4.O Monocryl subcuticular sutures. Dermabond was placed on each incision. The patient tolerated the procedure well, was extubated in the operating room postoperative and will be transferred to the
[2021-08-30] MEDS: fentaNYL CITRATE INJ (*CRX) 100 MCG/2 ML VIAL 25 MCG IV PUSH ×2 (11:37→11:42)
--- NOTE | 2021-08-30 12:39 | PC.NURSE ---
Returned from OR per stretcher. Report received from BALDEMAR Mccrary.
[2021-08-30] MEDS: POTASSIUM CHLORIDE 20 MEQ TABLET.ER PO (12:56)
[2021-08-30] MEDS: FUROSEMIDE 40 MG TABLET PO (12:56)
[2021-08-30] MEDS: BACLOFEN 10 MG TABLET PO ×2 (12:56→16:17)
[2021-08-30] MEDS: DOCUSATE SODIUM 100 MG CAPSULE PO ×2 (12:56→21:11)
[2021-08-30] MEDS: LACTATED RINGERS 1,000 ML 75 ML IV CONT (12:56)
[2021-08-30] MEDS: GABAPENTIN 300 MG CAPSULE PO ×2 (13:00→21:45)
[2021-08-30] MEDS: HYDROcodone/acetaminophen (*CRX) 5-325 MG TABLET 1 TAB PO ×2 (14:08→18:16)
[2021-08-30] MEDS: MIRTAZAPINE 15 MG TABLET PO (21:11)
[2021-08-31] VITALS (15 sets, daily range): BP systolic 103–118; BP diastolic 52–87; PULSE 89–106; RESP 16–24; TEMP 35.8–36.5; O2SAT 87–97
[2021-08-31] MEDS: LACTATED RINGERS 1,000 ML 75 ML IV CONT (02:27)
[2021-08-31] MEDS: MORPHINE SULFATE (*CRX) 2 MG/ML INJ IV PUSH (03:09)
[2021-08-31] MEDS: GABAPENTIN 300 MG CAPSULE PO ×3 (05:26→21:49)
[2021-08-31 05:45] LABS: Basophils Percent Auto 0.1 % (0.2-1.2); Eosinophils Percent Auto 0.1 % (0-4.4); Hematocrit 38.9 % (37.0-47.0); Hemoglobin 12.3 g/dL (12.0-15.0); Immature Granulocyte Absolute 0.05 K/mm3 (0.00-0.031); Immature Granulocyte Percent A 0.7 % (0-0.5); Lymphocytes Absolute Auto 0.71 K/mm3 (0.9-3.2); Lymphocytes Percent Auto 10.3 % (18.3-44.2); Mean Corpuscular HGB Conc 31.6 g/dl (32-36); Mean Corpuscular Hemoglobin 29.9 pg (26-34); Mean Corpuscular Volume 94.4 fl (80-100); Mean Platelet Volume 10.3 fl (7.4-10.4); Monocytes Absolute Auto 0.5 K/mm3 (0.1-0.6); Monocytes Percent Auto 6.5 % (2.6-8.5); Neutrophils Absolute Auto 5.7 K/mm3 (1.3-6.7); Neutrophils Percent Auto 82.3 % (45.5-73.1); Platelet Count Result 203 k/mm3 (150-375); Red Blood Count 4.12 M/mm3 (4.2-5.4); Red Cell Distribution Width 15.8 % (11.5-14.5); White Blood Count 6.9 K/mm3 (4.5-10.0)
[2021-08-31 05:54] LABS: Alanine Aminotransferase 44 U/L (4-35); Albumin Level 2.9 g/dL (3.5-5.1); Alkaline Phosphatase 90 U/L (38-126); Anion Gap 5 mmol/L (8-16); Aspartate Amino Transferase 41 U/L (14-36); Bilirubin,Total 0.8 mg/dL (0.2-1.3); Blood Urea Nitrogen 18 mg/dL (7-17); Calcium 8.4 mg/dL (8.4-10.2); Carbon Dioxide 29 mmol/L (22-30); Chloride 103 mmol/L (98-107); Estimated CRCL calculation 45 ml/min; Estimated Glomerular Filt Rate 60; Glucose 130 mg/dL (65-110); Potassium 3.8 mmol/L (3.4-5.0); Sodium 137 mmol/L (137-145)
[2021-08-31] MEDS: THYROID 30 MG TABLET PO (08:30)
[2021-08-31] MEDS: dilTIAZem HCL CD 180 MG CAP.ER.24H PO (08:30)
[2021-08-31] MEDS: FUROSEMIDE 40 MG TABLET PO (08:30)
[2021-08-31] MEDS: POTASSIUM CHLORIDE 20 MEQ TABLET.ER PO (08:30)
[2021-08-31] MEDS: BACLOFEN 10 MG TABLET PO ×3 (08:30→16:19)
[2021-08-31] MEDS: DOCUSATE SODIUM 100 MG CAPSULE PO ×2 (08:30→20:16)
--- NOTE | 2021-08-31 09:14 | PM.IMPN ---
Progress Note: A&P Assessment and Plan (1) Acute cholecystitis: Code(s): K81.0 - Acute cholecystitis Status: Acute Assessment and Plan: Acute gangrenous cholecystitis, with severe inflammation Continue Zosyn. Antiemetics and analgesics available as needed. NPO status though may take medications with sips of water. Surgery consulted. Resume xarelto once okay with surgery Cholecystectomy 08/29/2021 with a drain placed I added blood culture Anticipate discharge in 2 days pain is controlled able to ambulate better and okay with surgery (2) Hypothyroidism: Code(s): E03.9 - Hypothyroidism, unspecified Status: Acute Assessment and Plan: Continue levothyroxine. (3) Chronic atrial fibrillation: Code(s): I48.20 - Chronic atrial fibrillation, unspecified Status: Acute Assessment and Plan: She actually sounds to be in a sinus rhythm. EKG ordered. Continue diltiazem , resume Xarelto once okay with surgery. 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 cont iv abx Repeat chest x-ray today Subjective Date/time seen: 08/31/21 09:14 Interval history: 80-year-old female with chronic atrial fibrillation on anticoagulation, hypertension, and hypothyroidism who presented to the ED from home for evaluation of abdominal pain. CT scan of the abdomen concern for cholecystitis possible pneumonia Salter was held cholecystectomy 08/29/2021 Patient has history of UTI in the past with culture positive for Enterococcus and E coli in the past Patient feels better but still complaining of abdominal pain Continue pain control PT OT evaluation may benefit from rehab status post cholecystectomy with drain placement Had neck pain probably musculoskeletal Patient denies fever headache chest pain I am seeing the patient for abdominal pain Exam Narrative: Alert Chest decreased air entry bilateral Abdomen tender nondistended CVS S1 + S2 Lower extremity edema Objective Data Vital Signs Vital Signs: Vital Signs - 24 hr 08/30/21 11:23 08/30/21 11:30 08/30/21 11:45 Temperature 97.3 F L Pulse Rate 104 H 97 99 Respiratory Rate 20 20 20 Blood Pressure 119/59 L 113/76 120/72 Pulse Oximetry 90 92 92 08/30/21 12:00 08/30/21 12:15 08/30/21 12:30 Temperature Pulse Rate 91 98 105 H Respiratory Rate 20 24 H 24 H Blood Pressure 106/70 119/74 111/64 Pulse Oximetry 89 L 90 90 08/30/21 12:45 08/30/21 13:00 08/30/21 13:30 Temperature 99.6 F 99.5 F 98.7 F Pulse Rate 107 H 102 H 102 H Respiratory Rate 20 20 20 Blood Pressure 106/54 L 120/74 117/85 Pulse Oximetry 94 90 92 08/30/21 13:42 08/30/21 14:30 08/30/21 18:00 Temperature 98.5 F 98.4 F Pulse Rate 101 H 96 Respiratory Rate 20 16 Blood Pressure 118/82 116/78 Pulse Oximetry 91 93 93 08/30/21 19:50 08/30/21 23:39 08/31/21 04:00 Temperature 98 F 97.6 F 97.1 F L Pulse Rate 109 H 101 H 102 H Respiratory Rate 17 17 17 Blood Pressure 117/94 H 114/81 118/77 Pulse Oximetry 96 93 92 Intake/Output Intake/Output: Intake & Output 08/28/21 08/29/21 08/30/21 08/31/21 23:59 23:59 23:59 23:59 Intake Total 2100 2640 1840 1830 Output Total 300 1500 430 100 Balance 1800 1140 1410 1730 Meds/Results Medications: Active Medications Generic Name Dose Route Start Last Admin Trade Name Freq PRN Reason Stop Dose Admin Hydrocodone Bitart/Acetaminophen 1 tab 08/30/21 12:32 08/30/21 18:16 Hydrocodone/Acetaminophen (*Crx) 5-325 Mg Tablet PO 1 tab Q4H PRN Administration Pain
--- NOTE | 2021-08-31 09:19 | P.PNAN_ITS ---
Anes - Prog Note Post-Op Date/Time: 08/31/21 09:19 Cardiovascular status: normal Respiratory status: normal Airway patency: baseline Mental status: baseline Post-Op hydration status: normal Vital Signs: Last Vital Signs Temp 97.1 F L 08/31/21 04:00 Pulse 102 H 08/31/21 04:00 Resp 17 08/31/21 04:00 BP 118/77 08/31/21 04:00 Pulse Ox 92 08/31/21 04:00 Pain Score (VAS): 4 I/O: Intake & Output 08/30/21 08/31/21 08/31/21 23:59 07:59 15:59 Intake Total 590 1590 240 Output Total 100 Balance 590 1490 240 Laboratory Tests 08/31/21 05:27 08/31/21 05:27 08/31/21 08/31/21 05:27 05:27 WBC 6.9 RBC 4.12 L Hgb 12.3 Hct 38.9 MCV 94.4 MCH 29.9 MCHC 31.6 L RDW 15.8 H Plt Count 203 MPV 10.3 Immature Gran % (Auto) 0.7 H Neut % (Auto) 82.3 H Lymph % (Auto) 10.3 L [place] % (Auto) 6.5 Eos % (Auto) 0.1 Baso % (Auto) 0.1 L Lymph # (Auto) 0.71 L [place] # (Auto) 0.5 Eos # (Auto) 0.0 Baso # (Auto) 0.0 Abs Immat Gran (auto) 0.05 H Absolute Neuts (auto) 5.7 Absolute Nucleated RBC 0.0 Nucleated RBC % 0.0 Sodium 137 Potassium 3.8 Chloride 103 Carbon Dioxide 29 Anion Gap 5 L BUN 18 H Creatinine 0.90 Estim Creat Clear Calc 45 Estimated GFR 60 Glucose 130 H Calcium 8.4 Total Bilirubin 0.8 AST 41 H ALT 44 H Alkaline Phosphatase 90 Total Protein 6.0 L Albumin 2.9 L Post-procedural complaints: none Patient Feedback: Patient satisfied with anesthetic care.pain 4 at rest, 10 with activity. encouraged CDB & incentive use
[2021-08-31] MEDS: HYDROcodone/acetaminophen (*CRX) 5-325 MG TABLET 1 TAB PO ×2 (09:40→16:25)
[2021-08-31 10:31] LABS: NT Pro B Type Natriuretic Pept 2390 pg/mL (5-100)
[2021-08-31] MEDS: FUROSEMIDE INJ 40 MG/4 ML VIAL 20 MG IV PUSH (10:57)
[2021-08-31] MEDS: BENZOCAINE/MENTHOL (*BKC) 18 EA LOZENGE 1 LOZENGE PO (13:01)
[2021-08-31] MEDS: ALBUTEROL SULFATE NEB 2.5 MG/0.5 ML INH INHALATION ×2 (13:11→20:42)
[2021-08-31] MEDS: IPRATROPIUM BR 0.02% INH SOLN 0.5 MG/2.5 ML VIAL INHALATION ×2 (13:18→20:40)
--- NOTE | 2021-08-31 14:14 | PM.PNGS ---
Progress Note: A&P Assessment and Plan (1) Acute cholecystitis: Code(s): K81.0 - Acute cholecystitis Status: Acute Assessment and Plan: doing well, cont abx, back to ECF soon, will remove drain prior to dc Subjective Subjective Date/Time Seen: 08/31/21 14:14 feels better, some incisional soreness Review of Systems Review of Systems: All systems reviewed & are unremarkable except as noted in HPI and below Exam Const: General: cooperative, comfortable and no acute distress Resp: Auscultation: clear to auscultation bilaterally Cardio: Rate: regular rate Rhythm: regular rhythm GI: Inspection: normal to inspection, non-distended and incision GI Palp: Yes Soft to palpation, Yes Tenderness to palpation present (GI), No Guarding due to palpation present (GI) and No Rigid due to palpation Objective Data Vital Signs Vital Signs: Vital Signs - 24 hr 08/30/21 14:30 08/30/21 18:00 08/30/21 19:50 Temperature 36.9 C 36.9 C 36.6 C Pulse Rate 101 H 96 109 H Respiratory Rate 20 16 17 Blood Pressure 118/82 116/78 117/94 H Pulse Oximetry 93 93 96 08/30/21 23:39 08/31/21 04:00 08/31/21 07:40 Temperature 36.4 C 36.2 C L Pulse Rate 101 H 102 H Respiratory Rate 17 17 Blood Pressure 114/81 118/77 Pulse Oximetry 93 92 87 L 08/31/21 10:00 08/31/21 10:31 08/31/21 11:13 Temperature 36.4 C Pulse Rate 103 H Respiratory Rate 20 Blood Pressure 111/87 Pulse Oximetry 95 91 94 08/31/21 13:29 08/31/21 13:32 Temperature Pulse Rate 106 H Respiratory Rate Blood Pressure Pulse Oximetry 95 Intake/Output Intake/Output: Intake & Output 08/28/21 08/29/21 08/30/21 08/31/21 23:59 23:59 23:59 23:59 Intake Total 2100 2640 1840 2700 Output Total 300 1500 430 180 Balance 1800 1140 1410 2520 Meds/Results Medications: Active Medications Generic Name Dose Route Start Last Admin Trade Name Freq PRN Reason Stop Dose Admin Hydrocodone Bitart/Acetaminophen 1 tab 08/30/21 12:32 08/31/21 09:40 Hydrocodone/Acetaminophen (*Crx) 5-325 Mg Tablet PO 1 tab Q4H PRN Administration Pain Rated 4-6 Albuterol 2.5 mg 08/31/21 14:00 08/31/21 13:11 Albuterol Sulfate Neb 2.5 Mg/0.5 Ml Inh INHALATION 09/01/21 08:01 2.5 mg Q6HRT JHON Administration Baclofen 10 mg 08/29/21 09:00 08/31/21 13:01 Baclofen 10 Mg Tablet PO 10 mg TID JHON Administration Benzocaine 1 lozenge 08/31/21 12:22 08/31/21 13:01 Benzocaine/Menthol (*Bkc) 18 Ea Lozenge PO 1 lozenge PRN PRN Administration Sore Throat Diltiazem HCl 180 mg 08/29/21 09:00 08/31/21 08:30 Diltiazem Hcl Cd 180 Mg Cap.Er.24h PO 180 mg DAILY JHON Administration Docusate Sodium 100 mg 08/29/21 09:00 08/31/21 08:30 Docusate Sodium 100 Mg Capsule PO 100 mg Q12HR JHON Administration Enoxaparin Sodium 40 mg 09/01/21 09:00 Enoxaparin 40 Mg/0.4 Ml Syringe SUB-Q DAILY [facility] Fentanyl Citrate 25 mcg 08/30/21 09:25 08/30/21 11:42 Fentanyl Citrate Inj (*Crx) 100 Mcg/2 Ml Vial IV PUSH 25 mcg Q2M PRN Administration Pain Furosemide 40 mg 08/29/21 09:00 08/31/21 08:30 Furosemide 40 Mg Tablet PO 40 mg DAILY JHON Administration Gabapentin 300 mg 08/28/21 22:00 08/31/21 13:01 Gabapentin 300 Mg Capsule PO 300 mg Q8HR JHON Administration Piperacillin Sod/Tazobactam Sod 2.25 gm in 50 mls @ 100 mls/hr 08/28/21 21:00 08/31/21 13:59 Zosyn 2.25 Gm/D5w 50 Ml IVPB 100 mls/hr Q6H JHON Administration Ipratropium Bellamy 0.5 mg 08/31/21 14:00 08/31/21 13:18 Ipratropium Br 0.02% Inh Soln 0.5 Mg/2.5 Ml Vial INHALATION 09/01/21 08:01 0.5 mg Q6HRT JHON Administration Mirtazapine 15 mg 08/28/21 21:00 08/30/21 21:11 Mirtazapine 15 Mg Tablet PO 15 mg HS JHON Administration Morphine Sulfate 2 mg 08/28/21 21:45 08/31/21 03:09 Morphine Sulfate (*Crx) 2 Mg/Ml Inj IV PUSH 2 mg Q4H PRN Administration Pain Rated 7-10 Ondansetron HCl
[2021-08-31] MEDS: MIRTAZAPINE 15 MG TABLET PO (20:16)
--- NOTE | 2021-08-31 20:51 | PCRCNOTE ---
Pt. stated at 1999 respiratory treatment they not want to be woken up for their next treatment due at 0200. Patient was informed if they wake up in the night and change their mind to call and treatment will be given and be back on regular schedule
[2021-09-01] VITALS (11 sets, daily range): BP systolic 102–119; BP diastolic 52–80; PULSE 84–103; RESP 16–22; TEMP 35.8–37.1; O2SAT 92–99
[2021-09-01 05:52] LABS: Basophils Percent Auto 0.3 % (0.2-1.2); Eosinophils Absolute Auto 0.1 K/mm3 (0-0.3); Hematocrit 35.7 % (37.0-47.0); Hemoglobin 11.8 g/dL (12.0-15.0); Immature Granulocyte Absolute 0.04 K/mm3 (0.00-0.031); Immature Granulocyte Percent A 0.6 % (0-0.5); Lymphocytes Absolute Auto 1.34 K/mm3 (0.9-3.2); Lymphocytes Percent Auto 20.3 % (18.3-44.2); Mean Corpuscular HGB Conc 33.1 g/dl (32-36); Mean Corpuscular Hemoglobin 30.5 pg (26-34); Mean Corpuscular Volume 92.2 fl (80-100); Mean Platelet Volume 9.9 fl (7.4-10.4); Monocytes Absolute Auto 0.7 K/mm3 (0.1-0.6); Neutrophils Absolute Auto 4.4 K/mm3 (1.3-6.7); Neutrophils Percent Auto 66.8 % (45.5-73.1); Platelet Count Result 228 k/mm3 (150-375); Red Blood Count 3.87 M/mm3 (4.2-5.4); Red Cell Distribution Width 15.8 % (11.5-14.5); White Blood Count 6.6 K/mm3 (4.5-10.0)
[2021-09-01] MEDS: GABAPENTIN 300 MG CAPSULE PO ×3 (05:55→21:20)
[2021-09-01 06:06] LABS: Alanine Aminotransferase 36 U/L (4-35); Albumin Level 2.7 g/dL (3.5-5.1); Alkaline Phosphatase 82 U/L (38-126); Anion Gap 4 mmol/L (8-16); Aspartate Amino Transferase 30 U/L (14-36); Bilirubin,Total 0.5 mg/dL (0.2-1.3); Blood Urea Nitrogen 17 mg/dL (7-17); Calcium 8.2 mg/dL (8.4-10.2); Carbon Dioxide 30 mmol/L (22-30); Chloride 104 mmol/L (98-107); Estimated CRCL calculation 46 ml/min; Estimated Glomerular Filt Rate 60; Glucose 109 mg/dL (65-110); Potassium 3.2 mmol/L (3.4-5.0); Sodium 138 mmol/L (137-145)
[2021-09-01] MEDS: IPRATROPIUM BR 0.02% INH SOLN 0.5 MG/2.5 ML VIAL INHALATION (07:08)
[2021-09-01] MEDS: ALBUTEROL SULFATE NEB 2.5 MG/0.5 ML INH INHALATION (07:09)
[2021-09-01] MEDS: dilTIAZem HCL CD 180 MG CAP.ER.24H PO (09:03)
[2021-09-01] MEDS: BACLOFEN 10 MG TABLET PO ×3 (09:04→16:30)
[2021-09-01] MEDS: THYROID 30 MG TABLET PO (09:04)
[2021-09-01] MEDS: DOCUSATE SODIUM 100 MG CAPSULE PO ×2 (09:04→20:39)
[2021-09-01] MEDS: POTASSIUM CHLORIDE 20 MEQ TABLET.ER PO (09:04)
[2021-09-01] MEDS: ENOXAPARIN 40 MG/0.4 ML SYRINGE SUB-Q (09:05)
[2021-09-01] MEDS: FUROSEMIDE 40 MG TABLET PO (09:05)
[2021-09-01] MEDS: POTASSIUM CHLORIDE 20 MEQ TABLET 40 MEQ PO (09:07)
[2021-09-01] MEDS: HYDROcodone/acetaminophen (*CRX) 5-325 MG TABLET 1 TAB PO (10:33)
--- NOTE | 2021-09-01 14:09 | PC.NURSE ---
On 09/01/21, the student, [Aleksandr Gaines, Alcira Jackman], provided care and completed [facility] documentation on this patient. I have reviewed the student's documentation and agree with the findings.
--- NOTE | 2021-09-01 14:24 | PM.PNGS ---
Progress Note: A&P Assessment and Plan (1) Acute cholecystitis: Code(s): K81.0 - Acute cholecystitis Status: Acute Assessment and Plan: Continues to improve. Decreasing O2 needs. CXR noted. Appreciate hospitalist's help. Plan to go back to assisted living with home health when okay with other services. Will continue IV antibiotics, which can be stopped on discharge. Plan to remove MARI drain prior to discharge. Additional Plan I have discussed the patient's case and plan of care with Dr. Barton. Subjective Subjective Date/Time Seen: 09/01/21 14:24 Post Op day: 2 (lap shanta) Patient reports: no new complaints, feels better, tolerating a regular diet, flatus, no bowel movement and afebrile Interval history: Patient seen and examined. She reports feeling better today than yesterday. She reports feeling sore at her incisions, but this is controlled at this time. She denies nausea or vomiting. She is still requiring 2L O2 via NC, and nursing reports titrating her down from 4 L earlier today. She denies dyspnea at rest or chest pain. She did work with PT today. Review of Systems Review of Systems: All systems reviewed & are unremarkable except as noted in HPI and below Exam Const: General: comfortable, no acute distress, alert and awake Orientation/consciousness: patient oriented x3 GI: Inspection: non-distended, incision (Abdominal incisions clean and dry, glue intact.) and other (MARI drain serosanguineous) GI Palp: Yes Soft to palpation and Yes Tenderness to palpation present (GI) (incisional) Auscultation: normal bowel sounds Neuro: General: moves all extremities and no focal motor deficits Extrem: General: no clubbing, cyanosis or edema and no calf tenderness Psych: Insight: Good insight present (Psych) Judgement: Good judgement present (Psych) Objective Data Vital Signs Vital Signs: Vital Signs - 24 hr 08/31/21 18:10 08/31/21 19:41 08/31/21 20:00 Temperature 97.2 F L 97.7 F Pulse Rate 89 98 Respiratory Rate 20 18 Blood Pressure 112/72 116/72 Pulse Oximetry 96 97 97 08/31/21 20:40 08/31/21 20:44 08/31/21 20:48 Temperature Pulse Rate 89 92 Respiratory Rate Blood Pressure Pulse Oximetry 94 08/31/21 22:54 09/01/21 03:56 09/01/21 07:02 Temperature 96.5 F L 96.5 F L Pulse Rate 98 97 84 Respiratory Rate 16 16 Blood Pressure 103/52 L 102/52 L Pulse Oximetry 97 99 09/01/21 07:11 09/01/21 07:15 09/01/21 07:57 Temperature Pulse Rate 90 Respiratory Rate Blood Pressure Pulse Oximetry 94 92 09/01/21 09:08 09/01/21 10:00 09/01/21 14:00 Temperature 98.5 F 97.6 F Pulse Rate 90 103 H 86 Respiratory Rate 16 16 16 Blood Pressure 115/66 108/80 Pulse Oximetry 95 98 97 Intake/Output Intake/Output: Intake & Output 08/29/21 08/30/21 08/31/21 09/01/21 23:59 23:59 23:59 23:59 Intake Total 2640 1840 4010 900 Output Total 1500 430 580 710 Balance 1140 1410 3430 190 Meds/Results Medications: Active Medications Generic Name Dose Route Start Last Admin Trade Name Freq PRN Reason Stop Dose Admin Hydrocodone Bitart/Acetaminophen 1 tab 08/30/21 12:32 09/01/21 10:33 Hydrocodone/Acetaminophen (*Crx) 5-325 Mg Tablet PO 1 tab Q4H PRN Administration Pain Rated 4-6 Baclofen 10 mg 08/29/21 09:00 09/01/21 12:50 Baclofen 10 Mg Tablet PO 10 mg TID JHON Administration Benzocaine 1 lozenge 08/31/21 12:22 08/31/21 13:01 Benzocaine/Menthol (*Bkc) 18 Ea Lozenge PO 1 lozenge PRN PRN Administration Sore Throat Diltiazem HCl 180 mg 08/29/21 09:00 09/01/21 09:03 Diltiazem Hcl Cd 180 Mg Cap.Er.24h PO 180 mg DAILY JHON Administration Docusate Sodium 100 mg 08/29/21 09:00 09/01/21 09:04 Docusate Sodium 100 Mg Capsule PO 100 mg Q12HR JHON Administration Enoxaparin Sodium 40 mg 09/01/21 09:00 09/01/21 09:05 Enoxaparin 40 Mg/0.4 Ml Syringe SUB-Q 40 mg DAILY JHON Administration Fentanyl Cit
--- NOTE | 2021-09-01 16:12 | PM.IMPN ---
Progress Note: A&P Assessment and Plan (1) Acute cholecystitis: Code(s): K81.0 - Acute cholecystitis Status: Acute Assessment and Plan: Acute gangrenous cholecystitis, with severe inflammation Continue Zosyn. Antiemetics and analgesics available as needed. NPO status though may take medications with sips of water. Surgery consulted. status post cholecystectomy 08/29/[address] drain in place general surgery on board and plan for MARI drain removal in the morning depending on the output Currently on Lovenox subQ, resume Xarelto when okay with surgery (2) Hypothyroidism: Code(s): E03.9 - Hypothyroidism, unspecified Status: Acute Assessment and Plan: Continue levothyroxine. (3) Chronic atrial fibrillation: Code(s): I48.20 - Chronic atrial fibrillation, unspecified Status: Acute Assessment and Plan: She actually sounds to be in a sinus rhythm. EKG ordered. Continue diltiazem , resume Xarelto once okay with surgery. (4) Chronic anticoagulation: Code(s): Z79.01 - extermination inspector (current) use of anticoagulants Status: Acute Assessment and Plan: Resume Xarelto once okay with surgery (5) Abnormal finding of lung: Code(s): R09.89 - Other specified symptoms and signs involving the circulatory and respiratory systems Status: Acute Assessment and Plan: CT shows airspace opacities of the lung bases, consistent with atelectasis cannot rule out pneumonia. cont iv abx Repeat chest x-ray with mild pulmonary edema/airspace opacities at the lung bases left worse than right consistent with atelectasis versus pneumonia with small right pleural effusion and cardiomegaly Five continue IV antibiotics as ordered lower oxygen as tolerated (6) Chronic atrial fibrillation: Code(s): I48.20 - Chronic atrial fibrillation, unspecified Status: Acute (7) Hypoxia: Code(s): R09.02 - Hypoxemia Status: Acute Assessment and Plan: with pneumonia versus atelectasis postoperative Incentive spirometry Taper oxygen as tolerated Additional Plan with PT OT suggest rehab placement director of social work on board for placement Subjective Date/time seen: 09/01/21 16:12 Interval history: 80-year-old female with chronic atrial fibrillation on anticoagulation, hypertension, and hypothyroidism who presented to the ED from home for evaluation of abdominal pain. CT scan of the abdomen concern for cholecystitis possible pneumonia Xarelto was held cholecystectomy 08/29/2021 Patient has history of UTI in the past with culture positive for Enterococcus and E coli in the past 09/01/2021 patient reports he is sore. She denies any nausea vomiting and tolerating foot. MARI drain is still in place and is planned to be removed in the morning tomorrow denies any fever chills Review of Systems Review of Systems: All systems reviewed & are unremarkable except as noted in HPI and below ( HPI) Exam Narrative: GENERAL: The patient is well developed, not in acute distress HEENT: Nonicteric sclerae, PERRLA, EOMI. Oropharynx clear. Moist mucous membranes. Conjunctivae appear well perfused. CHEST: Chest wall is nontender. HEART: Regular rate and rhythm without murmur, rubs, or gallops LUNGS: Clear to auscultation bilaterally. no respiratory distress ABDOMEN: Soft, mild distension, MARI drain in place with serosanguineous fluid in the bulb, abdominal incision clean dry blue intact. Normal bowel sounds, mild tenderness SKIN: No rash, no excessive bruising, petechiae, or purpura. NEUROLOGIC: Cranial nerves II-XII intact, alert and oriented x 3, no gross motor deficits EXTREMITIES: no edema, cyanosis or clubbing Objective Data Vital Signs Vital Signs: Vital Signs - 24 hr 08/31/21 18:10 08/31/21 19:41 08/31/21 20:00 Temperature 97.2 F L 97.7 F Pulse Rate 89 98 Respiratory Rate 20 18 Blood Pressure 112/72 116/72 Pulse Oximetry 96 97 97 08/31/21 20:4
[2021-09-01] MEDS: MIRTAZAPINE 15 MG TABLET PO (20:39)
[2021-09-02] VITALS (7 sets, daily range): BP systolic 98–126; BP diastolic 59–75; PULSE 79–102; RESP 16–20; TEMP 36.4–37.1; O2SAT 93–98
[2021-09-02] MEDS: HYDROcodone/acetaminophen (*CRX) 5-325 MG TABLET 1 TAB PO ×2 (02:11→08:57)
[2021-09-02 05:20] LABS: Basophils Absolute Auto 0.1 K/mm3 (0.0-0.1); Basophils Percent Auto 0.6 % (0.2-1.2); Eosinophils Absolute Auto 0.4 K/mm3 (0-0.3); Eosinophils Percent Auto 4.2 % (0-4.4); Hematocrit 39.5 % (37.0-47.0); Hemoglobin 12.8 g/dL (12.0-15.0); Immature Granulocyte Absolute 0.09 K/mm3 (0.00-0.031); Immature Granulocyte Percent A 1.1 % (0-0.5); Lymphocytes Absolute Auto 1.63 K/mm3 (0.9-3.2); Mean Corpuscular HGB Conc 32.4 g/dl (32-36); Mean Corpuscular Hemoglobin 30.1 pg (26-34); Mean Corpuscular Volume 92.9 fl (80-100); Mean Platelet Volume 9.6 fl (7.4-10.4); Monocytes Absolute Auto 0.9 K/mm3 (0.1-0.6); Monocytes Percent Auto 10.3 % (2.6-8.5); Neutrophils Absolute Auto 5.6 K/mm3 (1.3-6.7); Neutrophils Percent Auto 64.8 % (45.5-73.1); Platelet Count Result 258 k/mm3 (150-375); Red Blood Count 4.25 M/mm3 (4.2-5.4); Red Cell Distribution Width 15.9 % (11.5-14.5); White Blood Count 8.6 K/mm3 (4.5-10.0)
[2021-09-02 05:46] LABS: Alanine Aminotransferase 32 U/L (4-35); Albumin Level 2.8 g/dL (3.5-5.1); Alkaline Phosphatase 82 U/L (38-126); Anion Gap 3 mmol/L (8-16); Aspartate Amino Transferase 30 U/L (14-36); Bilirubin,Total 0.7 mg/dL (0.2-1.3); Blood Urea Nitrogen 12 mg/dL (7-17); Calcium 8.3 mg/dL (8.4-10.2); Carbon Dioxide 30 mmol/L (22-30); Chloride 104 mmol/L (98-107); Estimated CRCL calculation 56 ml/min; Estimated Glomerular Filt Rate > 60; Glucose 100 mg/dL (65-110); Magnesium 2.2 mg/dL (1.6-2.3); Potassium 3.5 mmol/L (3.4-5.0); Sodium 137 mmol/L (137-145)
[2021-09-02] MEDS: GABAPENTIN 300 MG CAPSULE PO ×2 (05:52→13:07)
--- NOTE | 2021-09-02 08:25 | PM.PNGS ---
Progress Note: A&P Assessment and Plan (1) Acute cholecystitis: Code(s): K81.0 - Acute cholecystitis Status: Acute Assessment and Plan: doing well, drain removed, stop abx, routine postop care, ok to dc from surgical standpoint, f/u 2 wks p dc, path reviewed Subjective Subjective Date/Time Seen: 09/02/21 08:25 feels good, pain improved, some loose stools, alvaro diet Review of Systems Review of Systems: All systems reviewed & are unremarkable except as noted in HPI and below Exam Const: General: cooperative, comfortable and no acute distress Orientation/consciousness: patient oriented x3 Resp: Auscultation: clear to auscultation bilaterally Cardio: Rate: regular rate Rhythm: regular rhythm GI: Inspection: normal to inspection, non-distended and incision GI Palp: Yes Soft to palpation, Yes Tenderness to palpation present (GI), No Guarding due to palpation present (GI) and No Rigid due to palpation Other: MARI - minimal s/s, removed Objective Data Vital Signs Vital Signs: Vital Signs - 24 hr 09/01/21 09:08 09/01/21 10:00 09/01/21 14:00 Temperature 36.9 C 36.4 C Pulse Rate 90 103 H 86 Respiratory Rate 16 16 16 Blood Pressure 115/66 108/80 Pulse Oximetry 95 98 97 09/01/21 17:50 09/01/21 20:45 09/01/21 20:47 Temperature 36.6 C 37.1 C Pulse Rate 94 102 H Respiratory Rate 22 H 18 Blood Pressure 118/70 119/80 Pulse Oximetry 96 95 95 09/02/21 00:11 09/02/21 04:14 Temperature 37.1 C 36.4 C Pulse Rate 102 H 79 Respiratory Rate 18 20 Blood Pressure 126/75 108/73 Pulse Oximetry 94 93 Intake/Output Intake/Output: Intake & Output 08/30/21 08/31/21 09/01/21 09/02/21 23:59 23:59 23:59 23:59 Intake Total 1840 4010 1720 580 Output Total 253 182 5193 540 Balance 1410 3430 460 40 Meds/Results Medications: Active Medications Generic Name Dose Route Start Last Admin Trade Name Freq PRN Reason Stop Dose Admin Hydrocodone Bitart/Acetaminophen 1 tab 08/30/21 12:32 09/02/21 02:11 Hydrocodone/Acetaminophen (*Crx) 5-325 Mg Tablet PO 1 tab Q4H PRN Administration Pain Rated 4-6 Baclofen 10 mg 08/29/21 09:00 09/01/21 16:30 Baclofen 10 Mg Tablet PO 10 mg TID JHON Administration Benzocaine 1 lozenge 08/31/21 12:22 08/31/21 13:01 Benzocaine/Menthol (*Bkc) 18 Ea Lozenge PO 1 lozenge PRN PRN Administration Sore Throat Diltiazem HCl 180 mg 08/29/21 09:00 09/01/21 09:03 Diltiazem Hcl Cd 180 Mg Cap.Er.24h PO 180 mg DAILY JHON Administration Docusate Sodium 100 mg 08/29/21 09:00 09/01/21 20:39 Docusate Sodium 100 Mg Capsule PO 100 mg Q12HR JHON Administration Enoxaparin Sodium 40 mg 09/01/21 09:00 09/01/21 09:05 Enoxaparin 40 Mg/0.4 Ml Syringe SUB-Q 40 mg DAILY JHON Administration Fentanyl Citrate 25 mcg 08/30/21 09:25 08/30/21 11:42 Fentanyl Citrate Inj (*Crx) 100 Mcg/2 Ml Vial IV PUSH 25 mcg Q2M PRN Administration Pain Furosemide 40 mg 08/29/21 09:00 09/01/21 09:05 Furosemide 40 Mg Tablet PO 40 mg DAILY HJON Administration Gabapentin 300 mg 08/28/21 22:00 09/02/21 05:52 Gabapentin 300 Mg Capsule PO 300 mg Q8HR JHON Administration Piperacillin/Tazobactam/Dextrose 3.375 gm in 50 mls @ 100 mls/hr 09/01/21 09:00 09/02/21 02:45 Zosyn 3.375 Gm/D5w 50ml Pm IVPB Infused Q6H JHON Infusion Mirtazapine 15 mg 08/28/21 21:00 09/01/21 20:39 Mirtazapine 15 Mg Tablet PO 15 mg HS JHON Administration Morphine Sulfate 2 mg 08/28/21 21:45 08/31/21 03:09 Morphine Sulfate (*Crx) 2 Mg/Ml Inj IV PUSH 2 mg Q4H PRN Administration Pain Rated 7-10 Ondansetron HCl 4 mg 08/28/21 13:48 Ondansetron Inj 4 Mg/2 Ml Vial IV PUSH Q4H PRN Nausea Potassium Chloride 20 meq 08/29/21 09:00 09/01/21 09:04 Potassium Chloride 20 Meq Tablet.Er PO 20 meq DAILY JHON Administration Thyroid 30 mg 08/29/21 09:00 09/01/21 09:04 Thyroid 30 Mg Tablet PO 30
[2021-09-02] MEDS: DOCUSATE SODIUM 100 MG CAPSULE PO (08:41)
[2021-09-02] MEDS: FUROSEMIDE 40 MG TABLET PO (08:41)
[2021-09-02] MEDS: THYROID 30 MG TABLET PO (08:41)
[2021-09-02] MEDS: BACLOFEN 10 MG TABLET PO ×2 (08:42→13:07)
[2021-09-02] MEDS: dilTIAZem HCL CD 180 MG CAP.ER.24H PO (08:42)
[2021-09-02] MEDS: POTASSIUM CHLORIDE 20 MEQ TABLET.ER PO (08:42)
[2021-09-02] MEDS: ENOXAPARIN 40 MG/0.4 ML SYRINGE SUB-Q (08:44)
--- NOTE | 2021-09-02 13:29 | PM.DS ---
DS: Admitting Diagnosis Discharge Date 09/02/2021 Admitting Diagnosis Abdominal pain DS: Discharge Diagnosis Discharge Diagnosis (1) Acute cholecystitis: Code(s): K81.0 - Acute cholecystitis Status: Acute Assessment and Plan: Acute gangrenous cholecystitis, with severe inflammation. Started on Zosyn. Antiemetics and analgesics available as needed. NPO status though may take medications with sips of water. Surgery consulted. status post cholecystectomy 08/29/[address]21 with [address] drain in place which was removed prior to the discharge General surgery okay with discharge. Postoperative was placed on Lovenox subQ okay to resume Xarelto per General surgery No antibiotics needed at discharge. (2) Hypothyroidism: Code(s): E03.9 - Hypothyroidism, unspecified Status: Acute Assessment and Plan: Continue levothyroxine. (3) Chronic atrial fibrillation: Code(s): I48.20 - Chronic atrial fibrillation, unspecified Status: Acute Assessment and Plan: She actually sounds to be in a sinus rhythm. EKG ordered. Continue diltiazem , resume Xarelto at discharge (4) Chronic anticoagulation: Code(s): Z79.01 - longterm (current) use of anticoagulants Status: Acute Assessment and Plan: Resume Xarelto at discharge (5) Abnormal finding of lung: Code(s): R09.89 - Other specified symptoms and signs involving the circulatory and respiratory systems Status: Acute Assessment and Plan: CT shows airspace opacities of the lung bases, consistent with atelectasis cannot rule out pneumonia. cont iv abx Repeat chest x-ray with mild pulmonary edema/airspace opacities at the lung bases left worse than right consistent with atelectasis versus pneumonia with small right pleural effusion and cardiomegaly Continue IV antibiotics as ordered lower oxygen as tolerated (6) Hypoxia: Code(s): R09.02 - Hypoxemia Status: Acute Assessment and Plan: with pneumonia versus atelectasis postoperative Incentive spirometry Taper oxygen as tolerated DS: Summary Hospital Course Hospital Course: See above Time Spent with Patient Time attestation: Total time spent providing and/or coordinating discharge services: 45 minutes Exam Narrative: GENERAL: The patient is well developed, not in acute distress HEENT: Nonicteric sclerae, PERRLA, EOMI. Oropharynx clear. Moist mucous membranes. Conjunctivae appear well perfused. CHEST: Chest wall is nontender. HEART: Regular rate and rhythm without murmur, rubs, or gallops LUNGS: Clear to auscultation bilaterally. no respiratory distress ABDOMEN: Soft, mild distension, MARI drain in place with serosanguineous fluid in the bulb, abdominal incision clean dry blue intact. Normal bowel sounds, mild tenderness SKIN: No rash, no excessive bruising, petechiae, or purpura. NEUROLOGIC: Cranial nerves II-XII intact, alert and oriented x 3, no gross motor deficits EXTREMITIES: no edema, cyanosis or clubbing DS: Data Data Completed and Pending Completed studies during hospitalization: Pending at discharge 08/30/21 10:53 Surgical [PTH] Routine Labs on day of discharge: Labs from last 24 hours 09/02/21 09/02/21 05:04 05:04 WBC 8.6 RBC 4.25 Hgb 12.8 Hct 39.5 MCV 92.9 MCH 30.1 MCHC 32.4 RDW 15.9 H Plt Count 258 MPV 9.6 Immature Gran % (Auto) 1.1 H Neut % (Auto) 64.8 Lymph % (Auto) 19.0 [place] % (Auto) 10.3 H Eos % (Auto) 4.2 Baso % (Auto) 0.6 Lymph # (Auto) 1.63 [place] # (Auto) 0.9 H Eos # (Auto) 0.4 H Baso # (Auto) 0.1 Abs Immat Gran (auto) 0.09 H Absolute Neuts (auto) 5.6 Absolute Nucleated RBC 0.0 Nucleated RBC % 0.0 Sodium 137 Potassium 3.5 Chloride 104 Carbon Dioxide 30 Anion Gap 3 L BUN 12 D Creatinine 0.70 Estim Creat Clear Calc 56 Estimated GFR > 60 Glucose 100 Calcium 8.3 L Magnesium 2.2 Total Bilirubin 0.7 AST 3
--- NOTE | 2021-09-02 13:47 | PC.NURSE ---
On 09/02/21, the student, [Vance Lott], provided care and completed [facility] documentation on this patient. I have reviewed the student's documentation and agree with the findings.
== END 2021-09-02 14:45 | disposition home health service (06) | DRG 417 ==
LOC: ANHED 13:53 → ANH2MED 14:45
PROVIDERS: Emergency Medicine; Nurse Practitioner Family; Physician Assistant; Surgery; Admitting Provider Internal Medicine; Emergency Provider Emergency Medicine; PCP Family Medicine; Visit Provider Internal Medicine
PROC: 0FT44ZZ Resection of Gallbladder, Percutaneous Endoscopic Approach (ICD-10-PCS; CPT 47562; principal; 2021-08-30 10:00)
DX: K81.0 Acute cholecystitis (principal); J18.9 Pneumonia, unspecified organism; I48.20 Chronic atrial fibrillation, unspecified; D83.9 Common variable immunodeficiency, unspecified; E03.9 Hypothyroidism, unspecified; R09.89 Other specified symptoms and signs involving the circulatory and respiratory systems; F32.9 Major depressive disorder, single episode, unspecified; M81.0 Age-related osteoporosis without current pathological fracture; M79.7 Fibromyalgia; G62.9 Polyneuropathy, unspecified; Z86.19 Personal history of other infectious and parasitic diseases; F41.9 Anxiety disorder, unspecified; R09.02 Hypoxemia; Z79.899 Other long term (current) drug therapy; Z79.01 Long term (current) use of anticoagulants
CPT/HCPCS: 36415; 51701; 71045; 74177; 76705; 80053; 81001; 83690; 83735; 83880; 84443; 85025; 85610; 85730; 87040; 88304; 93005; 94640; 96361; 96365; 96366; 96367; 96374; 96375; 96376; 97110; 97162; 97165; 97530; 97535; 99285; A9270; G0378; J1100; J1650; J1940; J2270; J2405; J2543; J2704; J2710; J3010; J3480; J7030; J7040; J7120; Q9967

== ENCOUNTER 2021-09-16 07:09 | Emergency (ER) | payer MEDICARE, SELFPAY ==
--- NOTE | ~2021-09-16 | XR_ITS ---
EXAMINATION: XR shoulder RT min 2V, XR humerus RT EXAM DATE: 09/16/2021 07:41 INDICATION: Right shoulder pain after ground-level fall. Initial encounter. TECHNIQUE: Frontal, glenoid, Y projections of the right shoulder. Orthogonal projections of the righ t humerus. There is no prior study for comparison. FINDINGS: Acute closed posttraumatic comminuted fracture of the right humeral head with about 2 cm d istraction greater tuberosity. Also transverse fracture line across the humeral neck. The humerus is mildly anterior subluxed with respect to the glenoid, without feliz dislocation. Acromioclavicular anh int is unremarkable. The mid and distal aspect of the humerus unremarkable. Bones are osteopenic. IMPRESSION: 1. Right humeral head/neck fractures, mild anterior subluxation. 2. Osteopenia. Reviewed, dictated and finalized at location A. IMPRESSION: 1. Right humeral head/neck fractures, mild anterior subluxation. 2. Osteopenia.
[2021-09-16 07:10] VITALS: BP 117/67; RESP 18; TEMP 36.9; O2SAT 100
--- NOTE | 2021-09-16 07:10 | ED.FALL ---
HPI - Fall General Chief Complaint: Fall Stated Complaint: GLF Time Seen by Provider: 09/16/21 07:09 Source: patient, EMS, RN notes reviewed and old records reviewed Mode of arrival: EMS Limitations: no limitations History of Present Illness HPI Narrative: 80-year-old female with history of chronic atrial fibrillation and recent gallbladder surgery presenting to the emergency department for evaluation after having a ground-level fall during which she injured her right humerus. Patient states that she had a mechanical fall and tripped causing her to land on her right side. Patient denies striking her head denies any loss of consciousness. Patient denies any other pain or injury from the fall. Denies any chest pain or shortness of breath. No nausea vomiting or diarrhea. Patient states that she does still have some residual pain from her laparoscopic cholecystectomy approximately 1 week ago but states that pain is improving and is unchanged since the fall. Patient denies any lower extremity pain or injury. Patient does have history of lower extremity edema and her lower extremities are currently wrapped since this morning. EMR does show a previous fracture of the left humerus. Related Data Home Medications Medication Instructions Recorded Confirmed diltiazem HCl [DILT-XR] 180 mg PO DAILY 02/06/21 09/13/21 thyroid (pork) [[place] Thyroid] 30 mg PO DAILY 02/06/21 09/13/21 baclofen 10 mg PO TID 06/16/21 09/13/21 furosemide 40 mg PO DAILY 06/16/21 09/13/21 gabapentin 300 mg PO TID 06/16/21 09/13/21 potassium chloride 20 meq PO DAILY 06/16/21 09/13/21 Allergies Allergy/AdvReac Type Severity Reaction Status Date / Time No Known Allergies Allergy Verified 09/16/21 08:21 Review of Systems Review of Systems: CONSTITUTIONAL: Denies fever, chills, or sweats. EYES: Denies visual changes, redness, or discharge. ENT: Denies rhinorrhea, congestion, sore throat, or otalgia. CARDIOVASCULAR: Denies chest pain, palpitations, or edema. RESPIRATORY: Denies cough or dyspnea. GASTROINTESTINAL: Denies abdominal pain, nausea, vomiting, or diarrhea. GENITOURINARY: Denies dysuria or hematuria. SKIN: Denies rash or itching. MUSCULOSKELETAL: Right shoulder and right humerus pain. NEUROLOGIC: Denies headache, numbness, or weakness. All systems reviewed & are unremarkable except as noted in HPI and below PMFSH Past Medical History Medical History (Updated 09/16/21 @ 08:17 by Dank Garay MD) Anxiety Chronic anticoagulation Chronic atrial fibrillation Chronic constipation Common variable immunodeficiency Depression Eczema Fibromyalgia Hepatitis C Completed treatment. Hypothyroidism Left humeral fracture (06/10/19) Lymphedema Macular degeneration Osteoarthritis Osteoporosis Peripheral neuropathy Surgical History Surgical History (Updated 09/13/21 @ 15:49 by Tal Traore PA-C) History of sinus surgery x3 History of tonsillectomy and adenoidectomy S/P laparoscopic cholecystectomy Family History Family History Father Family history of cardiovascular disease Mother Cerebrovascular accident Other Hypertension Social History Social History Social History: The patient lives in assisted living at [facility]. She never and has no children. Her sister is at [facility] as well, but in the nursing care center. 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 Lifelong nonsmoker. No alcohol or illicit substance abuse. Surrogate decision maker: Nicky Alberto, friend. Code status: Full code. Smoking status: Never smoker Spiritual care concerns: No (Judaism) Agree to blood products: Yes Exam Narrative: APPEARANCE: Well appearing, no pain, no distress, well-nourished
--- NOTE | 2021-09-16 08:05 | ECG_ITS ---
Measurements Intervals [place] Rate: 100 P: NE: 0 QRS: 25 QRSD: 81 T: -34 QT: 346 QTc: 447 Interpretive Statements ATRIAL FIBRILLATION WITH RAPID VENTRICULAR RESPONSE NONSPECIFIC ST & T-WAVE ABNORMALITY ABNORMAL RHYTHM ECG COMPARED TO ECG 08/30/2021 08:19:59 NO SIGNIFICANT CHANGES Electronically Signed On 09-16-2021 15:09:19 CDT by Yrn Mejias M.D.
[2021-09-16] MEDS: HYDROmorphone HCL INJ (*CRX) 1 MG/ML SYR 0.5 MG IV PUSH (08:16)
[2021-09-16 08:21] VITALS: BP 120/76; PULSE 98; RESP 13; O2SAT 96
[2021-09-16 08:41] LABS: Basophils Absolute Auto 0.1 K/mm3 (0.0-0.1); Eosinophils Absolute Auto 0.1 K/mm3 (0-0.3); Eosinophils Percent Auto 2.3 % (0-4.4); Hematocrit 40.1 % (37.0-47.0); Hemoglobin 13.5 g/dL (12.0-15.0); Immature Granulocyte Absolute 0.03 K/mm3 (0.00-0.031); Immature Granulocyte Percent A 0.5 % (0-0.5); Lymphocytes Absolute Auto 1.33 K/mm3 (0.9-3.2); Lymphocytes Percent Auto 21.7 % (18.3-44.2); Mean Corpuscular HGB Conc 33.7 g/dl (32-36); Mean Corpuscular Hemoglobin 30.6 pg (26-34); Mean Corpuscular Volume 90.9 fl (80-100); Mean Platelet Volume 10.1 fl (7.4-10.4); Monocytes Absolute Auto 0.5 K/mm3 (0.1-0.6); Monocytes Percent Auto 8.2 % (2.6-8.5); Neutrophils Absolute Auto 4.1 K/mm3 (1.3-6.7); Neutrophils Percent Auto 66.3 % (45.5-73.1); Platelet Count Result 334 k/mm3 (150-375); Red Blood Count 4.41 M/mm3 (4.2-5.4); Red Cell Distribution Width 16.1 % (11.5-14.5); White Blood Count 6.1 K/mm3 (4.5-10.0)
[2021-09-16 08:57] LABS: Alanine Aminotransferase 13 U/L (4-35); Alkaline Phosphatase 156 U/L (38-126); Anion Gap 7 mmol/L (8-16); Aspartate Amino Transferase 20 U/L (14-36); Bilirubin,Total 0.3 mg/dL (0.2-1.3); Blood Urea Nitrogen 12 mg/dL (7-17); Calcium 9.3 mg/dL (8.4-10.2); Carbon Dioxide 29 mmol/L (22-30); Chloride 103 mmol/L (98-107); Estimated CRCL calculation 41 ml/min; Estimated Glomerular Filt Rate > 60; Glucose 116 mg/dL (65-110); Sodium 139 mmol/L (137-145)
[2021-09-16] MEDS: POTASSIUM CHLORIDE 20 MEQ PACKET (FOR LIQUID) 40 MEQ PO (09:17)
[2021-09-16 10:04] VITALS: BP 127/85; PULSE 104; RESP 18; O2SAT 95
== END 2021-09-16 10:08 | disposition short-term general hospital (02) ==
PROVIDERS: Emergency Provider Emergency Medicine; PCP Family Medicine
DX: S42.291A Other displaced fracture of upper end of right humerus, initial encounter for closed fracture (principal); S42.211A Unspecified displaced fracture of surgical neck of right humerus, initial encounter for closed fracture; I48.20 Chronic atrial fibrillation, unspecified; D83.9 Common variable immunodeficiency, unspecified; E03.9 Hypothyroidism, unspecified; H35.30 Unspecified macular degeneration; M19.90 Unspecified osteoarthritis, unspecified site; M79.7 Fibromyalgia; M81.0 Age-related osteoporosis without current pathological fracture; G62.9 Polyneuropathy, unspecified; Z79.01 Long term (current) use of anticoagulants; Z86.19 Personal history of other infectious and parasitic diseases; M85.811 Other specified disorders of bone density and structure, right shoulder; R94.31 Abnormal electrocardiogram [ECG] [EKG]; W01.0XXA Fall on same level from slipping, tripping and stumbling without subsequent striking against object, initial encounter
CPT/HCPCS: 36415; 73030; 73060; 80053; 85025; 93005; 96374; 99285; A9270; J1170

== ENCOUNTER → 2022-03-28 14:00 | Outpatient (CLI) | payer MEDICARE, SELFPAY ==
--- NOTE | ~2022-03-28 | XR_ITS ---
EXAMINATION: [id number]_[id number] DATE: 03/28/2022 14:17 INDICATION: Neck discomfort. Bilateral arm numbness. TECHNIQUE: 3 views of the cervical spine were obtained. COMPARISON: None. FINDINGS: There is 4 degrees dextrocurvature of cervical spine. Vertebral body heights are normal. Th ere is mildly decreased disc height at C3-C4, moderately decreased disc height at C4-C5, and severely decreased disc height at C5-C6 and C6-C7. There is multilevel facet joint osteoarthritis, severe arya aterally at C4-C5. There is mild central canal stenosis at C4-C5, C5-C6, and C6-C7. No prevertebral s oft tissue swelling. IMPRESSION: 1. Severe cervical spondylosis. Reviewed, dictated and finalized at location A.
== END ==
PROVIDERS: PCP Family Medicine; Visit Provider Family Medicine
DX: M47.892 Other spondylosis, cervical region (principal)
CPT/HCPCS: 72040

== ENCOUNTER → 2022-09-23 10:00 | Outpatient (CLI) | payer MEDICARE, SELFPAY ==
--- NOTE | ~2022-09-23 | MR_ITS ---
MRI of the cervical spine Clinical History: Neck pain Technique: Axial T2-weighted and gradient images, and sagittal T1-weighted, T2-weighted, and STIR adeline ges were acquired. Findings: There is no fracture or subluxation of the cervical spine. Vertebral bodies maintain normal height and alignment. No suspicious bone marrow signal abnormality seen. There is moderate degenerat ángel disc narrowing from C3 through C7. At C2-C3, there is minimal disc bulge. There is mild facet arthropathy, right worse than left. There is no spinal canal stenosis, cord compression, or definite neural foraminal narrowing. At C3-C4, there is no significant disc bulge or herniation. No spinal canal stenosis, cord compressio n, or definite neural foraminal narrowing. At C4-C5, there is mild disc osteophyte complex, with minimal flattening the ventral cord, and mild c anal stenosis. There is bilateral neural foraminal narrowing, right worse than left. At C5-C6, there is disc osteophyte complex without feliz cord compression. There is bilateral neural foraminal narrowing, right worse than left. At C6-C7, there is disc bulge without feliz canal stenosis or cord compression. There is probable arya ateral neural foraminal narrowing, right worse than left. No abnormal signal seen in the spinal cord. Paravertebral soft tissues are unremarkable. Impression: Moderate degenerative spondylosis, as detailed above. Reviewed, dictated and finalized at [facility]. Impression: Moderate degenerative spondylosis, as detailed above.
== END ==
PROVIDERS: PCP Family Medicine; Visit Provider Family Medicine
DX: M47.812 Spondylosis without myelopathy or radiculopathy, cervical region (principal)
CPT/HCPCS: 72141

== ENCOUNTER → 2023-03-23 10:07 | Outpatient (REF) | payer MEDICARE, SELFPAY | LOC: ANHLAB 10:07 | PROVIDERS: PCP Family Medicine; Visit Provider Plastic Surgery | DX: L82.1 Other seborrheic keratosis (principal); C44.519 Basal cell carcinoma of skin of other part of trunk | CPT/HCPCS: 88305 ==

== ENCOUNTER 2023-11-15 15:06 | Emergency (ER) | payer MEDICARE, SELFPAY ==
--- NOTE | ~2023-11-15 | XR_ITS ---
XR knee RT min 4V, XR knee LT min 4V 11/15/2023 16:02 Indication: Fall. Bilateral knee pain. Procedure: 4 views each knee Comparison: No prior studies for comparison. Findings: Osteopenia. There is anatomic alignment. No acute fracture or traumatic malalignment. No anh int effusion. No foreign bodies. Impression: 1: No acute fracture. Reviewed, dictated and finalized at location B. Impression: 1: No acute fracture. Impression: 1: No acute fracture.
[2023-11-15 15:25] VITALS: BP 109/83; PULSE 96; RESP 16; TEMP 37.1; O2SAT 97
--- NOTE | 2023-11-16 00:06 | ED.GENADULT ---
HPI - General Adult General Chief complaint: Fall Stated complaint: fall Time Seen by Provider: 11/15/23 15:38 Source: patient, RN notes reviewed and old records reviewed Mode of arrival: ambulatory Limitations: no limitations History of Present Illness HPI narrative: 83-year-old female to [facility] with complaint of bilateral anterior knee pain status post fall prior to arrival. 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 Patient states that she was not going to be seen, but that her friend who is with her, made her come to get checked out. patient in no acute distress Related Data Allergies Allergy/AdvReac Type Severity Reaction Status Date / Time No Known Allergies Allergy Verified 11/15/23 15:24 Review of Systems Review of Systems: All systems reviewed & are unremarkable except as noted in HPI and below Constitutional: Constitutional: Reports no additional constitutional complaints Eyes: Eyes: Reports no additional eye complaints ENT: Reports system reviewed and no additional complaints, except as documented Cardiovascular: Cardiovascular: Reports no additional cardiovascular complaints, Denies chest pain and Denies dyspnea Respiratory: Respiratory: Reports no additional respiratory complaints, Denies cough and Denies dyspnea Musculoskeletal: Musculoskeletal: Reports no additional musculoskeletal complaints Neurologic: Reports system reviewed and no additional complaints, except as documented Psychiatric: Psychiatric: Reports no additional psychiatric complaints [facility] Past Medical History Medical History Anxiety Chronic anticoagulation Chronic atrial fibrillation Chronic constipation Chronic neck pain Common variable immunodeficiency Depression Eczema Fibromyalgia Hepatitis C Completed treatment. Hypothyroidism Left humeral fracture (06/10/19) Lymphedema Macular degeneration Mild cognitive impairment Osteoarthritis Osteoporosis Peripheral neuropathy Surgical History Surgical History History of sinus surgery x3 History of tonsillectomy and adenoidectomy S/P laparoscopic cholecystectomy Family History Family History Father Family history of cardiovascular disease Mother Cerebrovascular accident Other Hypertension Social History Social History Social History: The patient lives in assisted living at [facility]. She never and has no children. Her sister is at [facility] as well, but in the nursing care center. 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 Lifelong nonsmoker. No alcohol or illicit substance abuse. Surrogate decision maker: Nicky Remy, friend. Code status: Full code. Smoking status: Never smoker Lack of Transportation: No Lack of Food: Never True Current Housing: I Have Housing Concerned About Future Housing: No Difficulty Paying Gas/Electric Bills: No Difficulty Paying for Meds: No Currently Unemployed: No Education: Trade/Vocational Certificate Difficulty w/ Childcare or Family Care: No Living arrangements: with family Occupation/Education: retired Spiritual care concerns: No (Buddhist) Agree to blood products: Yes Comments At the time of my signature, I reviewed and agree with the nursing past medical, surgical, social, and family history. There is no relevant family history pertinent to the patient complaint. Exam Const: General: cooperative, healthy appearing, comfortable, no acute distress, alert and well nourished Nutritional Appearance: well nourished Orientation/consciousness: mallory
== END 2023-11-15 16:11 | disposition home or self-care (01) ==
PROVIDERS: Emergency Provider Nurse Practitioner Family; PCP Family Medicine
DX: S80.02XA Contusion of left knee, initial encounter (principal); S80.01XA Contusion of right knee, initial encounter; W19.XXXA Unspecified fall, initial encounter; I48.91 Unspecified atrial fibrillation; D83.9 Common variable immunodeficiency, unspecified; M79.7 Fibromyalgia; H35.30 Unspecified macular degeneration; M19.90 Unspecified osteoarthritis, unspecified site; M85.80 Other specified disorders of bone density and structure, unspecified site; G62.9 Polyneuropathy, unspecified; E03.9 Hypothyroidism, unspecified; F41.9 Anxiety disorder, unspecified; F32.A Depression, unspecified
CPT/HCPCS: 73564; 99214; G0463

== ENCOUNTER 2024-09-25 15:08 | Outpatient (CLI) | payer MEDICARE, SELFPAY ==
--- NOTE | ~2024-09-25 | XR_ITS ---
XR shoulder RT min 2V Ordering provider: Denny Smith MD History: . M25.511 - Pain in right shoulder . Comparison: September 16, 2021 FINDINGS: BONES: Healing fracture in the right humeral head and surgical neck. JOINT SPACES: The acromioclavicular joint is normal. The glenohumeral joint is normal. SOFT TISSUES: Normal. IMPRESSION: Healing fracture in the right proximal humerus. Reviewed, dictated and finalized at location A.
--- NOTE | ~2024-09-25 | XR_ITS ---
XR shoulder LT min 2V 09/25/2024 15:41 Indication: Left shoulder pain Procedure: 4 views left shoulder Comparison: 07/03/2019 Findings: There is a healed left humeral neck fracture. Osteopenia. Acromioclavicular joint intact. N o acute fracture or traumatic malalignment. There are interstitial infiltrates of the left mid and lo wer lung. Impression: 1: No acute fracture. 2: Interstitial infiltrates of the left mid and lower lung which may present mild edema or pneumonia. Recommend correlation with chest x-ray. Reviewed, dictated and finalized at location A. Impression: 1: No acute fracture. 2: Interstitial infiltrates of the left mid and lower lung which may present mi ld edema or pneumonia. Recommend correlation with chest x-ray.
--- NOTE | ~2024-09-25 | XR_ITS ---
XR ribs LT 2V Ordering provider: Denny Smith MD History: . R07.9 - Chest pain, unspecified . Comparison: August 31, 2021 FINDINGS: BONES: Fracture of the left fourth, and fifth ribs is seen. LEFT LUNG: No effusions or infiltrates. No pneumothorax. Underlying emphysematous changes. Cardiomegaly. SOFT TISSUES: Normal. IMPRESSION: Fracture left fourth and fifth ribs. Emphysematous changes of the lungs. Cardiomegaly. Reviewed, dictated and finalized at location A. IMPRESSION: Fracture left fourth and fifth ribs. Emphysematous changes of the lungs. Cardio megaly.
== END 2024-09-25 15:09 | disposition home or self-care (01) ==
LOC: MICIMG 15:10
PROVIDERS: PCP Family Medicine; Visit Provider Family Medicine
DX: M25.511 Pain in right shoulder (principal); S22.42XD Multiple fractures of ribs, left side, subsequent encounter for fracture with routine healing; X58.XXXD Exposure to other specified factors, subsequent encounter; S42.291D Other displaced fracture of upper end of right humerus, subsequent encounter for fracture with routine healing; R91.8 Other nonspecific abnormal finding of lung field
CPT/HCPCS: 71100; 73030